=== PATIENT | female | born 1945 | race Caucasian/White ===

== ENCOUNTER 2018-04-24 06:41 | Inpatient (IN) ==
--- NOTE | 2018-04-16 22:06 | Discharge Summary ---
Orders not resulted at time of discharge: Pending orders 04/17/18 00:01 XR shoulder complete RT [XR] Routine H/H [Hemoglobin and Hematocrit] [HEME] Routine - Discharge Diagnosis (1) Rotator cuff arthropathy of right shoulder Priority: Primary Status: Acute (2) Status post reverse total arthroplasty of right shoulder Priority: Primary Status: Acute - Hospital Course Hospital course: Ms. Majano is a 72 year old female - Time Spent with Patient Total time spent providing and/or coordinating discharge services: - Discharge Medications Prescriptions: OxyCODONE Immed Rel [Roxicodone 5 MG] 5 mg PO Q6HR PRN 7 Days #28 tablet PRN Reason: Severe Pain Home Medications: OxyCODONE Immed Rel [Roxicodone 5 MG] 5 mg PO Q6HR PRN 7 Days #28 tablet 04/16/18 [Rx] Allergies/Adverse Reactions: Allergy/AdvReac Type Severity Reaction Status Date / Time Amoxicillin Allergy Swelling Verified 12/24/16 11:52 of Lip/Tongue/Throat ampicillin Allergy Swelling Verified 12/24/16 11:52 of Lip/Tongue/Throat Penicillins Allergy Swelling Verified 12/24/16 11:52 of Lip/Tongue/Throat Primary care physician: Shanelle Nieves CNP - Discharge Instructions Follow Up With: Shanelle Nieves CNP [Primary Care Provider] -
[~2018-04-24 06:41] MED LIST: *HR* Enoxaparin 30 MG/0.3 ML SYRINGE SQ SCH
[2018-04-24] MEDS ORDERED: Lidocaine -MPF 4% 5 ML AMPUL ONE (07:18)
[2018-04-24] MEDS ORDERED: Ondansetron 4 MG/2 ML VIAL ONE (07:20)
[2018-04-24] MEDS ORDERED: Lidocaine -MPF 2% 2 ML VIAL ONE ×2 (07:20→07:38)
[2018-04-24] MEDS ORDERED: *HR* FentaNYL (PF) 100 MCG/2 ML VIAL ONE (07:20)
[2018-04-24] MEDS ORDERED: Dexamethasone 4 MG/ML VIAL ONE ×3 (07:20→08:14)
[2018-04-24] MEDS ORDERED: *HR* Succinylcholine 200 MG/10 ML VIAL IVP ONE (07:20)
[2018-04-24] MEDS ORDERED: *HR* Midazolam HCl 2 MG/2 ML VIAL ONE (07:21)
[2018-04-24] MEDS ORDERED: *HR* Propofol 200 MG/20 ML VIAL IVP ONE (07:22)
[2018-04-24] MEDS ORDERED: Albuterol 2.5 MG/3 ML NEBULIZER IH ONE (07:38)
[2018-04-24] MEDS ORDERED: Clindamycin 900 MG/50 ML 900 MG/50 ML IV.SOLN IVPB ONE (07:38)
--- NOTE | 2018-04-24 07:38 | Anesthesia Evaluation PreOp ---
Date of Encounter: 04/24/18 Time of Encounter: 07:37 - Past History Planned Operation: Right Total Shoulder Cardiac History: HTN, Hyperlipidemia Pulmonary History: Former smoker (quit 5 years ago, smoked for 50 years), Asthma, COPD (home O2 prn and qhs), SOPHIA Dx (does not use CPAP) CYLINDER TESTER History: Denies Any Significant HX Other Medical History: Diabetes Type II, Thyroid, GERD Anesthesia History: No Prior Anesthetic Complications, Past Anesthesia Alcohol Use: rarely Drug use: none Medications and Allergies Albuterol Sulfate [Ventolin Hfa] 2 puff IH Q6H PRN 04/24/18 [History] Atorvastatin [Lipitor] 40 mg PO HS 04/24/18 [History] Budesonide/Formoterol 160/4.5 [Symbicort 160/4.5] 2 puff IH BIDR 04/24/18 [History] Celecoxib [Celebrex] 200 mg PO DAILY 04/24/18 [History] Ferrous Sulfate [Iron] 325 mg PO DAILY 04/24/18 [History] Ipratropium/Albuterol Sulfate [Combivent Respimat Inhal [place]] 2 puff IH QID PRN 04/24/18 [History] Levothyroxine [Synthroid] 75 mcg PO 0630 04/24/18 [History] Linagliptin [Tradjenta] 5 mg PO DAILY 04/24/18 [History] Lisinopril [Zestril] 5 mg PO DAILY 04/24/18 [History] Multivitamin with Minerals/Lut [Cerovite Senior Tablet] 1 tab PO DAILY 04/24/18 [History] Pantoprazole Sodium [Protonix] 40 mg PO DAILY 04/24/18 [History] Pregabalin [Lyrica] 100 mg PO BID 04/24/18 [History] Propantheline [place] 15 mg PO DAILY 04/24/18 [History] Terbinafine HCl 250 mg PO DAILY 04/24/18 [History] Tizanidine HCl 2 mg PO Q8H PRN 04/24/18 [History] Zolpidem [Ambien] 10 mg PO HS 04/24/18 [History] metFORMIN [Glucophage] 250 mg PO BIDWM 04/24/18 [History] Allergy/AdvReac Type Severity Reaction Status Date / Time Amoxicillin Allergy Swelling Verified 04/24/18 07:49 of Lip/Tongue/Throat ampicillin Allergy Swelling Verified 04/24/18 07:49 of Lip/Tongue/Throat Penicillins Allergy Swelling Verified 04/24/18 07:49 of Lip/Tongue/Throat - Meds/Allergy Pre-op Review Medications Reviewed: Yes Allergies Reviewed: Yes Beta Blockers on Current Med List: No Anesthesia Results - Labs Laboratory Tests 04/14/18 04/14/18 04/14/18 12:20 12:20 12:20 WBC 8.5 Hgb 11.6 Hct 37.1 Plt Count 345 PT 11.3 INR 1.0 APTT 36.7 H Sodium 140 Potassium 3.7 BUN 7 L Creatinine 0.74 - Imaging EKG: report reviewed (04/14/[address] & T-WAVE ABNORMALITY) Anesthesia Exam O2 Sat Height 1.57 m Weight 84.822 kg O2 Sat by Pulse Oximetry 97 Vital Signs Temp Pulse Resp BP Pulse Ox 98.0 F 113 18 166/67 97 04/24/18 07:14 04/24/18 07:14 04/24/18 07:14 04/24/18 07:14 04/24/18 07:14 Blood Glucose* 190 Height: 5'2'' Weight: 187 lbs NPO (# of Hours): 8 Pain Scale: 0 Pain Scale Used: Numeric (1 - 10) - HEENT Pupil (Motor): EOMI Mallampati: III Teeth: Edentulous Oral Opening: Greater than 3 - CYLINDER TESTER LOC: Oriented CYLINDER TESTER Motor: Normal LUE, Normal RLE, Normal LLE, Normal Face, Deficit RUE CYLINDER TESTER Sensory: Normal: RUE, LUE, Face, Deficit: RLE, LLE - Cardiac Rhythm: Regular Murmur: None - Pulmonary Breath Sounds: bilateral Clear Respiratory Effort: Symmetrical Anesthesia Assess/Plan ASA Score: 3 Level of consciousness: Cooperative, Oriented, Tranquil Anesthetic Plan: General, Regional Nerve Block Regional Nerve Block Plan: Supraclavicular Monitoring Plan: Standard Monitors Recovery Plan: PACU
[2018-04-24] MEDS ORDERED: Ethanol\\Acetic Acid\\Na Ace\\Ben 1,000 ML IRRIG.SOLN IR ONE (07:40)
[2018-04-24] MEDS ORDERED: Ringers Solution, Lactated 1,000 ML IVC SCH ×3 (07:45→10:51)
--- NOTE | 2018-04-24 07:54 | History & Physical Report ---
Date of Encounter: 04/24/18 Time of Encounter: 07:53 24 Hour HP Update - Instructions Instructions: If the History and Physical is less than 30 days old and was completed prior to A.M. admission and or procedure and has NOT been updated on calendar day of procedure please complete this update prior to performing procedure. - Update Patient reports changes in Medical Condition: No Changes in examination, assessment, or condition: No Changes in Medication: No Preop tests/diagnostics Reviewed: Yes Surgery Remains Indicated: Yes Consent for Planned Operative Procedure(s) Verified: Yes - Pre-Operative Checklist Preoperative Checklist Indicated: No Prophylactic Antibiotic Ordered: Yes Is VTE Prophylaxis Indicated?: Yes
[2018-04-24] MEDS ORDERED: Levalbuterol Neb 1.25 MG/3 ML IH ONE (07:55)
[2018-04-24] MEDS ORDERED: ROPIVACAINE HCL/PF 0.5% 30 ML VIAL ONE (08:15)
[2018-04-24] MEDS ORDERED: Bupivacaine/Clonidine Syringe 1 EACH SYRINGE ONE (08:21)
--- NOTE | 2018-04-24 08:40 | Anesthesia Procedures ---
Date of Encounter: 04/24/18 Time of Encounter: 08:37 Procedures: Anesthesia - Nerve Block Procedure Date: 04/24/18 Time: 08:37 Allergies/Adv Reactions: Amoxicillin Allergy (Verified 04/24/18 07:49) Swelling of Lip/Tongue/Throat ampicillin Allergy (Verified 04/24/18 07:49) Swelling of Lip/Tongue/Throat Penicillins Allergy (Verified 04/24/18 07:49) Swelling of Lip/Tongue/Throat Pre-op Diagnosis: rotator cuff arthropathy Surgical Procedure: right reverse ball Checklist: Correct Patient Identifier, Correct procedure, History checked Correct side: Right Blood Thinner: No Monitor Applied: EKG, BP, Pulse Oximetry Supplemental Oxygen via Nasal Cannula (L/min): 2 Sedation: Versed (mg): 2 Sedation: Fentanyl (mcg): 50 Indication: Post Op Analgesia Block Type: Supraclavicular (30cc 0.5% ropivicaine), Other (SCP 5cc 0.25% bupivicaine with clonidine) Catheter placed: No Sterile Technique: Yes Ultrasound used: Yes Anatomy identified: Yes Visual spread of Local: Yes Neuro Stimulation: No Blood on Needle Aspiration: No Smooth Injection of Local: Yes Pain with Injection of Local: No Prep: Chlorhexadine Needle: 22 x 50 mm Stimuplex Local: 0.25% Bupivicaine w/Clonidine 20 mcg/cc, Ropivacaine Volume (cc): 35 Number of Attempts: 1 Complications: None/effective block
[2018-04-24] MEDS ORDERED: *HR* HYDROmorphone (PF) 1 MG/ML SYRINGE IVP PRN (09:13)
[2018-04-24] MEDS ORDERED: Ondansetron 4 MG/2 ML VIAL IVP ONE (09:13)
[2018-04-24] MEDS ORDERED: *HR* OxyCODONE Immed Rel 5 MG TABLET PO PRN ×2 (09:13→10:51)
--- NOTE | 2018-04-24 09:49 | Orthopedic Operative Note ---
Date of procedure: 04/24/18 Pre-op diagnosis: right shoulder cuff tear arthropathy Post-op diagnosis: same Procedure: Procedure: Total Shoulder Replacment Reverse, right Estimated blood loss: 50 cc Hardware: Metal and polyethylene replacement: Arthrex 24, +2 , 25m screw glenoid baseplate, 2 4.5 screws. 2 5.5 screw, 39+4 glenosphere, 9 apex humeral stem, poly insert 6 Exam Under anesthesia: full motion no instability Procedural Notes Irreparable tear rotator cuff Operative procedure: The patient was brought to the operating room and placed on the operating room table. After general anesthesia was administered the operative shoulder was examined. Findings were noted. The patient was placed in the modified beachchair position. All pressure points were padded appropriately. And the head was stabilized in the neutral position. The operative extremity was pr epped and draped in the sterile surgical fashion. The patient received IV antibiotics prior to skin incision. A standard deltopectoral approach was made to the operative shoulder. Incision was made to the skin and subcutaneous tissue,hemo stasis was obtained with Bovie cautery. Using careful blunt dissection the cephalic vein was identified and mobilized medially. The deltopectoral interval was developed and the clavipectoral fascia was incised. The subscap was released off the lesser tuberosity and tagged with #2 FiberWire suture subscap is reparable. The humerus was dislocated patient noted to have irreparable tear supraspinatus tendon, and the humeral cut was made along the anatomic neck. Anterior and posterior Bankart retractors were placed to expose the glenoid. The glenoid guide was seated and the centering hole was made. It was reamed with the appropriate reamer. The 24, +2, 25 mm screw, baseplate was seated and secured with (2) 4.5 screws and 2 5.5 screw. The baseplate was irrigated and dried and the 39+4 Glenosphere was seated and secured with the Welsh taper. The Welsh taper was tested and found to be secure the humerus was redislocated and prepared with the diaphyseal reamers, followed by a broaching process up to the appropriate size 9 apex in the patient's anatomic version. The metaphyseal reamer was then utilized. Trial reduction found the shoulder to be relocatable. Trial components were removed and 9 apex stem was impacted in place in the patient's anatomic version. Trial reduction found the shoulder to be relocatable and stable with the ap propriate 6 Stephanie Trial component was removed and the real implant was seated and secured the shoulder was reduced. The shoulder had excellent motion and excellent stability and no evidence of dislocation. The deep tissue was irrigated with pulse irrigation. The PA close the shoulder. The deltopectoral interval was closed with a running #1 PDS suture, subcutaneous tissue was irrigated and closed with 0 PDS suture, the skin was closed with Dermabond. The patient was placed in a sterile dressing, abduction brace and extubated. The patient was then transferred to the recovery room in stable condition. Anesthesia: GETA Surgeon: Quinn Larry Was there an customer support assistant present: Yes Forensic Psychologist: Mita Parada Estimated blood loss (cc): 50 Condition: stable Disposition: PACU
[2018-04-24 10:37] LABS: Hematocrit 35.5 % (35.3-44.9); Hemoglobin 11.4 g/dL (11.5-15.4)
--- NOTE | 2018-04-24 10:39 | Anesthesia Evaluation Post Op ---
Date of Encounter: 04/24/18 Time of Encounter: 10:38 - Vital Signs Vital Signs: Vital Signs/O2 Sat/Glucose, Most Recent Temp Pulse Resp BP Pulse Ox 97.7 F 96 16 145/76 96 04/24/18 10:34 04/24/18 10:34 04/24/18 10:34 04/24/18 10:34 04/24/18 10:34 Blood Glucose* 190 - Lungs Lungs: Clear Ascult./Percussion - Airway Airway: Non-obstructed - Cardiovascular Regular Rate - Mental Status Mental Status: Alert & Oriented, Answers Appropriately - Pain Pain Scale: 0 - Nausea Vomiting Nausea Vomiting: Not Present - Hydration Hydration: Tolerates oral liquids - Discharge PostOp Status: Transfer Patient to floor
[2018-04-24] MEDS ORDERED: Ondansetron 4 MG/2 ML VIAL IVP PRN (10:51)
[2018-04-24] MEDS ORDERED: Temazepam 15 MG CAPSULE PO PRN (10:51)
[2018-04-24] MEDS ORDERED: Pregabalin 50 MG CAPSULE PO SCH (10:51)
[2018-04-24] MEDS ORDERED: Sennosides 8.6 MG TABLET PO PRN (10:51)
[2018-04-24] MEDS ORDERED: (Terbinafine Hcl [Terbinafine Hcl] 250 MG) PO SCH (10:51)
[2018-04-24] MEDS ORDERED: MOM Conc 10 ML UD.LIQ PO PRN (10:51)
[2018-04-24] MEDS ORDERED: D5% in Water 1,000 ML IVC PRN (10:51)
[2018-04-24] MEDS ORDERED: Dextrose Gel 15 GM/37.5 ML TUBE PO PRN ×2 (10:51)
[2018-04-24] MEDS ORDERED: *HR* OxyCODONE/APAP 5/325 TABLET PO PRN (10:51)
[2018-04-24] MEDS ORDERED: PROPANTHELINE BROMIDE 15 MG PO SCH (10:51)
[2018-04-24] MEDS ORDERED: traMADol 50 MG TABLET PO PRN (10:51)
[2018-04-24] MEDS ORDERED: (Linagliptin [Tradjenta] 5 MG) PO SCH (10:51)
[2018-04-24] MEDS ORDERED: Budesonide/Formoterol 160/4.5 1 PUFF INH IH SCH (10:51)
[2018-04-24] MEDS ORDERED: Multivit/Ca/Min/Fe/FA 1 TAB TABLET PO SCH (10:51)
[2018-04-24] MEDS ORDERED: *HR* Dextrose 50 % in Water (Syg) 50 ML SYRINGE IVP PRN (10:51)
[2018-04-24] MEDS ORDERED: Naloxone 0.4 MG/ML INJ IVP PRN (10:51)
[2018-04-24] MEDS ORDERED: tiZANidine 4 MG TABLET PO PRN (10:51)
[2018-04-24] MEDS ORDERED: Insulin LISPRO 300 UNITS/3 ML VIAL SQ SCH ×2 (11:30→21:00)
[2018-04-24 11:45] VITALS: BP 117/70
[2018-04-24] MEDS ORDERED: *HR* Enoxaparin 30 MG/0.3 ML SYRINGE SQ SCH ×3 (13:09→18:00)
[2018-04-24] MEDS ORDERED: Clindamycin 900 MG/50 ML 900 MG/50 ML IV.SOLN IVPB SCH ×2 (13:10→16:00)
--- NOTE | 2018-04-24 14:38 | Discharge Summary ---
Orders not resulted at time of discharge: Pending orders 04/24/18 07:51 US anesthesia pain block [US] Routine 04/24/18 09:44 Surgical Pathology [PTH] Routine 04/25/18 04:00 Basic Metabolic Panel AM 0400 Hemoglobin and Hematocrit [HEME] AM 0400 04/26/18 04:00 Basic Metabolic Panel AM 0400 Hemoglobin and Hematocrit [HEME] AM 0400 Date of Encounter: 04/24/18 Time of Encounter: 14:36 - Discharge Diagnosis (1) Rotator cuff arthropathy of right shoulder Priority: Primary Status: Acute Comments: Opsite dressing, leave intact until first post-operative visit. Zipline in place, plan to remove at post-operative day #14-16. If dressing becomes >50% saturated, contact office, remove dressing and place appropriate dressing in its place. Do not allow for dressing to get wet. Shoulder Precautions x 6 weeks. Apply cold therapy wrap 3-6x/day for 20 minutes at a time. Encourage ambulation throughout the day. Use Incentive spirometer 10x/hour. Elevate affected extremity above heart as tolerated. NWB to affected upper extremity x 6 weeks. Will remove brace at first post-operative appointment. OK to remove during PT/OT and Home exercises. (2) Status post reverse total arthroplasty of right shoulder Priority: Primary Status: Acute (3) DMII (diabetes mellitus, type 2) Priority: Secondary Status: Chronic Qualifiers: Diabetes mellitus intermediate card tender insulin use: unspecified correction insulin use status Diabetes mellitus complication status: without complication Qualified Code(s): E11.9 - Type 2 diabetes mellitus without complications (4) HTN (hypertension) Priority: Secondary Status: Chronic Qualifiers: Hypertension type: essential hypertension Qualified Code(s): I10 - Essential (primary) hypertension (5) HLD (hyperlipidemia) Priority: Secondary Status: Acute Qualifiers: Hyperlipidemia type: mixed hyperlipidemia Qualified Code(s): E78.2 - Mixed hyperlipidemia (6) Hypothyroid Priority: Secondary Status: Chronic Qualifiers: Hypothyroidism type: unspecified Qualified Code(s): E03.9 - Hypothyroidism, unspecified (7) COPD (chronic obstructive pulmonary disease) Priority: Secondary Status: Chronic Qualifiers: COPD type: unspecified COPD Qualified Code(s): J44.9 - Chronic obstructive pulmonary disease, unspecified (8) Supplemental oxygen dependent Priority: Secondary Status: Chronic - Hospital Course Hospital course: Ms. Majano is a 72 year old female, status post Right TSR-reverse 04/24/18 . Patient had uneventful postoperative course. Stable for discharge. A&O x 3 Afebrile, vital signs stable. Vital Signs Temp Pulse Resp BP Pulse Ox 04/24/18 11:54 16 96 04/24/18 11:43 97.4 F L 98 18 117/70 96 04/24/18 10:54 97.8 F 100 19 155/81 95 04/24/18 10:34 97.7 F 96 16 145/76 96 04/24/18 10:24 92 14 137/68 96 04/24/18 10:14 93 16 138/73 96 04/24/18 10:04 98.9 F 98 16 134/72 99 04/24/18 08:37 105 18 154/73 95 04/24/18 08:27 101 18 157/102 96 04/24/18 07:40 98.0 F 113 18 166/67 97 04/24/18 07:14 98.0 F 113 18 166/67 97 Intake and Output 04/23/18 04/24/18 04/24/18 23:59 07:59 15:59 Intake Total 930 / 930 Output Total 1600 / 1600 Balance -670 / -670 Intake: IV Fluids 50 / 50 Cleocin Premix 900 MG/50 ML 900 50 / 50 mg In 50 ml @ 100 mls/hr IVPB PREOP ONE Rx#:[id number] Oral 880 / 880 Output: Urine 1550 / 1550 Estimated Blood Loss 50 / 50 Other: Meal Lunch Weight 84.822 kg Blood Glucose* 190 217 Patient Weight 04/24/18 23:59 Weight 84.822 kg Labs reviewed. H/H - stable, asymptomatic Short CBC 04/24/18 Range/Units 10:17 Hgb 11.4 L (11.5-15.4) g/dL Hct 35.5 (35.3-44.9) % Pain control: adequate Participating in PT. All questions and concerns addressed. Educated on use of incentive spirometer. Encouraged ambulation and proper hydration. Patient educated on post-operative restrictions and post-operative care. Assessment and plan: Continue with postoperative care Discharge plan: Home , discharge today with hh - Time Spent with Patient Total time spent providing and/or coordinating discharge services: - Discharge Medications Prescriptions: OxyCODONE Immed Rel [Roxicodone 5 MG] 5 mg PO Q6HR PRN 7 Days #28 tablet PRN Reason: Severe Pain Home Medications: Albuterol Sulfate [Ventolin Hfa] 2 puff IH Q6H PRN 04/24/18 [History] Atorvastatin [Lipitor] 40 mg PO HS 04/24/18 [History] Budesonide/Formoterol 160/4.5 [Symbicort 160/4.5] 2 puff IH BIDR 04/24/18 [History] Celecoxib [Celebrex] 200 mg PO DAILY 04/24/18 [History] Ferrous Sulfate [Iron] 325 mg PO DAILY 04/24/18 [History] Ipratropium/Albuterol Sulfate [Combivent Respimat 20-100 Mcg] 2 puff IH QID PRN 04/24/18 [History] Levothyroxine [Synthroid] 75 mcg PO 0630 04/24/18 [History] Linagliptin [Tradjenta] 5 mg PO DAILY 04/24/18 [History] Lisinopril [Zestril] 5 mg PO DAILY 04/24/18 [History] Multivitamin with Minerals/Lut [Cerovite Senior Tablet] 1 tab PO DAILY 04/24/18 [History] OxyCODONE Immed Rel [Roxicodone 5 MG] 5 mg PO Q6HR PRN 7 Days #28 tablet 04/24/18 [Rx] Pantoprazole Sodium [Protonix] 40 mg PO DAILY 04/24/18 [History] Pregabalin [Lyrica] 100 mg PO BID 04/24/18 [History] Propantheline [place] 15 mg PO DAILY 04/24/18 [History] Terbinafine HCl 250 mg PO DAILY 04/24/18 [History] Tizanidine HCl 2 mg PO Q8H PRN 04/24/18 [History] Zolpidem [Ambien] 10 mg PO HS 04/24/18 [History] metFORMIN [Glucophage] 250 mg PO BIDWM 04/24/18 [History] Allergies/Adverse Reactions: Allergy/AdvReac Type Severity Reaction Status Date / Time Amoxicillin Allergy Swelling Verified 04/24/18 07:49 of Lip/Tongue/Throat ampicillin Allergy Swelling Verified 04/24/18 07:49 of Lip/Tongue/Throat Penicillins Allergy Swelling Verified 04/24/18 07:49 of Lip/Tongue/Throat Date of admission: 04/24/18 10:51 Primary care physician: Shanelle Nieves CNP Consults: 04/24/18 10:51 Consult to Occupational Therapy [CONS] Routine Comment: post shoulder surgery Reason for Consult: post shoulder surgery Does patient have active BEDREST order?: No Is patient medically & hemodynamically stable?: Yes Consult to Physical Therapy [CONS] Routine Comment: post shoulder surgery Reason for Consult: post shoulder surgery Does patient have active BEDREST order?: No Is patient medically & hemodynamically stable?: Yes RT Post Op Consult [CONS] Routine 04/24/18 14:12 Consult to Insole Department Worker [CONS] Routine Reason for SW Consult: NEED HOME HEALTH CARE Anticipated date of discharge: 04/24/18 Labs on day of discharge: Labs from last 24 hours 04/24/18 04/24/18 10:17 07:12 Hgb 11.4 L Hct 35.5 POC Glucose 190 H - Impressions ITS Impressions Shoulder X-Ray 04/24/18 08:07 IMPRESSION: Satisfactory appearance status post right shoulder arthroplasty D/ / Neto Mathews MD / Neto Mathews MD Interpreting Provider: Neto Mathews MD - Patient Status Disposition: Home Health Service Condition: Good Functional capacity at discharge: uses cane/walker Overall status at discharge: patient is progressing back to baseline - Discharge Instructions Follow Up With: Shanelle Nieves CNP [Primary Care Provider] - Additional Instructions: Discharge Instructions: Total Shoulder Please call [facility] ([phone]), your Primary Care Physician, or report to the Emergency Room if you have any of the following symptoms: Nausea, vomiting, fever greater that 101.5, swelling, chest pain, shortness of breath, increased pain/redness/drainage/odor for your incision site, numbness/tingling, or any other concerning symptoms. ACTIVITY: Always keep your arm in the sling. Do not raise your arm away from your body. Do not use your arm to help with getting in or out of bed. No weight bearing permitted. Only perform those exercises given to you by your therapist. Incentive Spirometer 10 times an hour. MEDICATIONS: Upon discharge resume your home medications. Take all the medications as prescribed. Take a stool softener if taking narcotic pain medications. Stool softeners are only effective if you drink enough fluids. Drink 6-8 glass of water or fluids a day, unless this is not allowed for another health problem. Despite using stool softeners, if you haven't had a bowel movement in 3 days, please switch to a gentle laxative. Gentle laxatives are sold over the counter. You should have a bowel movement within 24 hours, if not call the office. You will be discharged from the hospital with a prescription for pain medication. You are encouraged to decrease the use of narcotic pain medication as tolerated. Should you require a refill, please call the office. [facility] prescribes narcotic pain medication for only 4-6 weeks after surgery. If you require pain medication beyond this time period, you may be referred to your Primary Care Physician or to the Pain Clinic for further evaluation. Plan ahead for refills on pain medication as many narcotics either need to be picked up at the office or mailed. It is best to call 48-72 hours in advance of needing a prescription refill so you don't run out of medication. To help control the post-operative pain, you may take NSAIDs (Aleve,Advil, Motrin, Ibuprofen, Naprosyn) or Tylenol as prescribed on the bottle in addition to the pain medication. WOUND CARE: Leave the dressing on for 7-10 days. You may change the dressing if it becomes saturated greater than 50%. Do not get the dressing wet at anytime. Wash your hands with antibacterial soap, rinse and dry prior to any wound care. If you have crystal the visiting nurse or rehab facility can remove the stapes 10-14 days after surgery and place steri-strips across the wound. Leave the steri-strips in place until they fall off on their own. You may let water from the shower run on top of the steri-strips. If you do not have a visiting nurse or rehab facility, you will need to return to the office at 10-14 days for the crystal to be removed. If you have itching or redness around the dressing call the office. FOLLOW-UP: Please follow up with your surgeon in the orthopedic clinic, as scheduled - Diet and Activity Activity: wear oxygen at night
--- NOTE | 2018-04-24 14:44 | Physician Discharge Referral ---
Home Health/Hosp Referral Info Transfer to: Home Health Provider in Charge Post Discharge: PCP - Diagnosis (1) Rotator cuff arthropathy of right shoulder Priority: Primary Status: Acute (2) Status post reverse total arthroplasty of right shoulder Priority: Primary Status: Acute (3) DMII (diabetes mellitus, type 2) Status: Chronic (4) HTN (hypertension) Status: Chronic (5) HLD (hyperlipidemia) Status: Acute (6) Hypothyroid Status: Chronic (7) COPD (chronic obstructive pulmonary disease) Status: Chronic (8) Supplemental oxygen dependent Status: Chronic - Respiratory Orders Other (O2 at night, and prn) Smoking Cessation: Smoking cessation has been advised. For more information, call the [employer] Tobacco Quit Line at 7-957-JQBK-NOW. - Diet/Nutrition Diet/Nutrition Orders: Regular - Activity Activity Orders: Up ad lyudmila, Ambulate - Services Needed Following services are medically necessary services: Nursing, Home Health Aide, Physical Therapy, Occupational Therapy Home Care Orders: Opsite dressing, leave intact until first post-operative visit. Zipline in place, plan to remove at post-operative day #14-16. If dressing becomes >50% saturated, contact office, remove dressing and place appropriate dressing in its place. Do not allow for dressing to get wet. Shoulder Precautions x 6 weeks. Apply cold therapy wrap 3-6x/day for 20 minutes at a time. Encourage ambulation throughout the day. Use Incentive spirometer 10x/hour. Elevate affected extremity above heart as tolerated. NWB to affected upper extremity x 6 weeks. Will remove brace at first post-operative appointment. OK to remove during PT/OT and Home exercises. O2 at night, and prn. - Transfer Medications Prescriptions: OxyCODONE Immed Rel [Roxicodone 5 MG] 5 mg PO Q6HR PRN 7 Days #28 tablet PRN Reason: Severe Pain Home Medications: Albuterol Sulfate [Ventolin Hfa] 2 puff IH Q6H PRN 04/24/18 [History] Atorvastatin [Lipitor] 40 mg PO HS 04/24/18 [History] Budesonide/Formoterol 160/4.5 [Symbicort 160/4.5] 2 puff IH BIDR 04/24/18 [History] Celecoxib [Celebrex] 200 mg PO DAILY 04/24/18 [History] Ferrous Sulfate [Iron] 325 mg PO DAILY 04/24/18 [History] Ipratropium/Albuterol Sulfate [Combivent Respimat 20-100 Mcg] 2 puff IH QID PRN 04/24/18 [History] Levothyroxine [Synthroid] 75 mcg PO 0630 04/24/18 [History] Linagliptin [Tradjenta] 5 mg PO DAILY 04/24/18 [History] Lisinopril [Zestril] 5 mg PO DAILY 04/24/18 [History] Multivitamin with Minerals/Lut [Cerovite Senior Tablet] 1 tab PO DAILY 04/24/18 [History] OxyCODONE Immed Rel [Roxicodone 5 MG] 5 mg PO Q6HR PRN 7 Days #28 tablet 04/24/18 [Rx] Pantoprazole Sodium [Protonix] 40 mg PO DAILY 04/24/18 [History] Pregabalin [Lyrica] 100 mg PO BID 04/24/18 [History] Propantheline [place] 15 mg PO DAILY 04/24/18 [History] Terbinafine HCl 250 mg PO DAILY 04/24/18 [History] Tizanidine HCl 2 mg PO Q8H PRN 04/24/18 [History] Zolpidem [Ambien] 10 mg PO HS 04/24/18 [History] metFORMIN [Glucophage] 250 mg PO BIDWM 04/24/18 [History] Allergies/Adverse Reactions: Allergy/AdvReac Type Severity Reaction Status Date / Time Amoxicillin Allergy Swelling Verified 04/24/18 07:49 of Lip/Tongue/Throat ampicillin Allergy Swelling Verified 04/24/18 07:49 of Lip/Tongue/Throat Penicillins Allergy Swelling Verified 04/24/18 07:49 of Lip/Tongue/Throat Certification: Further, I certify that my clinical findings support that this patient is homebound (i.e. absences from home require considerable and taxing effort and are for medical reasons or baptism services or infrequently or short duration when for other reasons) because: Homebound Reason: Post-surgery restriction and or conditions limit ability to leave home Attestation: My signature below is to certify that this patient is under my care and that I, or nurse practitioner, or a physician's optical assistant working with me, has a [id number] encounter with this patient.
[2018-04-24] MEDS ORDERED: *HR* Metformin 500 MG TABLET PO SCH (17:00)
== END 2018-04-24 16:10 | disposition home health service (06) | DRG 483 ==
LOC: SAMDAY 06:41 → 3NENU 10:51
PROVIDERS: ADMIT Orthopaedic Surgery; ATTEND Orthopaedic Surgery

== ENCOUNTER 2018-08-07 09:52 | Inpatient (IN) ==
[2018-08-07] MEDS ORDERED: methylPREDNISolone 125 MG/2 ML VIAL IVP ONE (09:59)
[2018-08-07] MEDS ORDERED: Ipratropium/Albuterol Neb 3 ML IH ONE (09:59)
--- NOTE | 2018-08-07 10:01 | Emergency Department Note ---
Disposition Clinical Impression: Acute exacerbation of chronic obstructive airways disease, Acute respiratory failure with hypoxia Fever Qualifiers: Fever type: unspecified Qualified Code(s): R50.9 - Fever, unspecified Disposition: Admitted As Inpatient Condition: Fair Instructions: Chronic Obstructive Pulmonary Disease (ED) Referrals: Shanelle Nieves CNP [Primary Care Provider] - Forms: ED Satisfaction Letter Time of Disposition: 13:03 General Adult HPI - General Stated complaint: WANDA Time Seen by Provider: 08/07/18 09:53 Source: patient, EMS Mode of arrival: EMS Limitations: physical limitation Nursing Notes Reviewed: Yes Vital Signs Reviewed: Yes - History of Present Illness HPI Narrative: Patient is a 72-year-old female past medical history of COPD, diabetes, HLD, HTN, and thyroid disease presents to the emergency department for evaluation of dyspnea that has been getting increasingly worse over the last 5 days with wheezing and productive cough. The patient states that she has an oxygen concentrator at home which usually only has to use 2 L at night which she has been having increased requirements. She denying any chest pain. Denies any fevers or recent sick contacts. States this is the worst that her COPD has ever been. - Related Data Home Medications Medication Instructions Recorded Confirmed Albuterol Sulfate [Ventolin Hfa] 2 puff IH Q6H PRN 04/24/18 04/24/18 Atorvastatin [Lipitor] 40 mg PO HS 04/24/18 04/24/18 Budesonide/Formoterol 160/4.5 2 puff IH BIDR 04/24/18 04/24/18 [Symbicort 160/4.5] Celecoxib [Celebrex] 200 mg PO DAILY 04/24/18 04/24/18 Ferrous Sulfate [Iron] 325 mg PO DAILY 04/24/18 04/24/18 Ipratropium/Albuterol Sulfate 2 puff IH QID PRN 04/24/18 04/24/18 [Combivent Respimat 20-100 Mcg] Levothyroxine [Synthroid] 75 mcg PO 0630 04/24/18 04/24/18 Linagliptin [Tradjenta] 5 mg PO DAILY 04/24/18 04/24/18 Lisinopril [Zestril] 5 mg PO DAILY 04/24/18 04/24/18 Multivitamin with Minerals/Lut 1 tab PO DAILY 04/24/18 04/24/18 [Cerovite Senior Tablet] Pantoprazole Sodium [Protonix] 40 mg PO DAILY 04/24/18 04/24/18 Pregabalin [Lyrica] 100 mg PO BID 04/24/18 04/24/18 Propantheline [place] 15 mg PO DAILY 04/24/18 04/24/18 Terbinafine HCl 250 mg PO DAILY 04/24/18 04/24/18 Tizanidine HCl 2 mg PO Q8H PRN 04/24/18 04/24/18 Zolpidem [Ambien] 10 mg PO HS 04/24/18 04/24/18 metFORMIN [Glucophage] 250 mg PO BIDWM 04/24/18 04/24/18 Allergies Allergy/AdvReac Type Severity Reaction Status Date / Time Amoxicillin Allergy Swelling Verified 04/24/18 07:49 of Lip/Tongue/Throat ampicillin Allergy Swelling Verified 04/24/18 07:49 of Lip/Tongue/Throat Penicillins Allergy Swelling Verified 04/24/18 07:49 of Lip/Tongue/Throat All systems ED: reviewed and negative except as stated. Review of Systems: As Per HPI Constitutional: Denies: fever, chills Cardiovascular: Reports: dyspnea on exertion. Denies: chest pain, palpitations, edema, syncope, paroxysmal nocturnal dyspnea Respiratory: Reports: cough, dyspnea, wheezes, sputum production. Denies: hemoptysis Gastrointestinal: Denies: abdominal pain, nausea, vomiting Musculoskeletal: Denies: back pain, neck pain Integumentary: Denies: rash Past Medical History - Past Medical History Attestation: Yes The following information was validated with the patient. Medical history: Reports: arthritis, asthma, COPD, diabetes, hyperlipidemia, hypertension, thyroid disease Surgical history: Reports: herniorrhaphy, hysterectomy Psychiatric history: Reports: no psych history - Social History Smoking Status: Former smoker Smokeless Tobacco Status: No Alcohol use: Reports: rarely Drug use: Reports: none Physical Exam - General Limitations: physical limitation General appearance: alert, in distress - Head Head exam: atraumatic, normocephalic - Eye Eye exam: Present: normal appearance, PERRL, EOMI - ENT ENT exam: normal exam, normal oropharynx, mucous membranes moist - Neck Neck exam: Present: normal inspection, full ROM, trachea midline - Chest Chest inspection: Present: normal inspection, symmetric chest wall rise - Respiratory Respiratory exam: Present: normal lung sounds bilaterally, respiratory distress, wheezes. Absent: accessory muscle use, prolonged expiratory phase - Cardiovascular Cardiovascular exam: Present: normal rhythm, tachycardia, +S1, +S2 - Abdominal Exam Abdominal exam: Present: soft, Non-Tender. Absent: tenderness, distention, guarding, rebound, rigidity - Extremities Exam Extremities exam: Present: normal inspection, full ROM. Absent: tenderness, pedal edema Course Course Narrative: Patient presents with increased work of breathing especially at bedside. The patient does have an oxygen saturation in the 80s without any supplemental oxygen. She has difficulty speaking in full sentences I ordered BiPAP given that she has diffuse wheezing in her history of COPD. she is given steroids and breathing treatments and she underwent evaluation with cardiac workup. - Reevaluation(s) Reevaluation #1: Patient is improving on BiPAP. Her heart rate continues to remain elevated. Her lab work was unremarkable and she is not acidotic. She had does have an elevation of her d-dimer so CTA of the chest was ordered she is also given a dose of azithromycin for COPD exacerbation given her negative chest x-ray. Time: 13:01 Reevaluation #2: Discussed the patient's case with the hospitalist on-call, Dr. Cruz and she agreed to accept the patient for COPD exacerbation. Time: 13:09 Vital Signs Temperature 101.6 F H 08/07/18 09:59 Pulse Rate 128 08/07/18 09:59 Respiratory Rate 21 08/07/18 09:59 Blood Pressure 167/105 08/07/18 09:59 O2 Sat by Pulse Oximetry 98 08/07/18 09:59 Temperature 101.6 F H 08/07/18 09:59 Pulse Rate 122 08/07/18 11:18 Respiratory Rate 23 08/07/18 11:18 Blood Pressure 106/79 08/07/18 11:18 O2 Sat by Pulse Oximetry 93 08/07/18 11:18 Oxygen Delivery Oxygen Delivery Bipap Medical Decision Making - Medical Records Medical records reviewed: Yes I reviewed the patient's medical records. - Lab Data Lab results reviewed: Yes I reviewed the patient's lab results. Result diagrams: 08/07/18 10:10 08/07/18 10:10 Lab Results 08/07/18 08/07/18 08/07/18 Range/Units 10:10 10:10 10:10 WBC 10.4 (4.3-11.1) K/mcL RBC 4.96 (3.82-4.97) M/mcL Hgb 12.5 (11.5-15.4) g/dL Hct 39.8 (35.3-44.9) % MCV 80.2 L (83.0-100.0) fL MCH 25.2 L (28.0-33.3) pg MCHC 31.4 L (31.6-35.5) g/dL RDW 16.1 H (11.5-14.5) % Plt Count 350 (140-400) K/mcL MPV 8.8 L (9.4-12.4) fL Immature Gran % 0.4 (0-4) % Seg Neutrophils % 72.0 % Lymphocytes % 18.6 % Monocytes % 8.1 % Eosinophils % 0.1 % Basophils % 0.8 % Neutrophils # 7.5 (1.6-8.9) K/mcL Lymphocytes # 1.9 (0.6-4.6) K/mcL Monocytes # 0.8 (0.0-1.3) K/mcL Eosinophils # 0.0 (0.0-0.6) K/mcL Basophils # 0.1 (0.0-0.2) K/mcL D-Dimer (0-500) ng/mLFEU VBG pH (7.32-7.42) pH Units VBG pCO2 (41-51) mmHg VBG pO2 (25-50) mmHg VBG HCO3 (21-27) mEq/L Sodium 134 L (136-145) mEq/L Potassium 3.9 (3.5-5.1) mEq/L Chloride 96 L (98-107) mEq/L Carbon Dioxide 28 (23-29) mEq/L BUN 9 (8-23) mg/dL Creatinine 0.79 (0.60-1.20) mg/dL Est GFR ( Amer) > 60 (> 60) Est GFR (Non-Af Amer) > 60 (> 60) BUN/Creatinine Ratio 11 (6-26) Glucose 182 H (70-105) mg/dL Calculated Osmolality 281 (280-300) Lactic Acid 0.7 (0.5-2.2) mmol/L Calcium 9.4 (8.6-10.3) mg/dL Troponin I < 0.03 (< 0.04) ng/mL B-Natriuretic Peptide (Less than 100) pg/mL 08/07/18 08/07/18 08/07/18 Range/Units 10:10 10:10 10:32 WBC (4.3-11.1) K/mcL RBC (3.82-4.97) M/mcL Hgb (11.5-15.4) g/dL Hct (35.3-44.9) % MCV (83.0-100.0) fL MCH (28.0-33.3) pg MCHC (31.6-35.5) g/dL RDW (11.5-14.5) % Plt Count (140-400) K/mcL MPV (9.4-12.4) fL Immature Gran % (0-4) % Seg Neutrophils % % Lymphocytes % % Monocytes % % Eosinophils % % Basophils % % Neutrophils # (1.6-8.9) K/mcL Lymphocytes # (0.6-4.6) K/mcL Monocytes # (0.0-1.3) K/mcL Eosinophils # (0.0-0.6) K/mcL Basophils # (0.0-0.2) K/mcL D-Dimer 846 H (0-500) ng/mLFEU VBG pH 7.38 (7.32-7.42) pH Units VBG pCO2 49 (41-51) mmHg VBG pO2 106 H (25-50) mmHg VBG HCO3 29 H (21-27) mEq/L Sodium (136-145) mEq/L Potassium (3.5-5.1) mEq/L Chloride (98-107) mEq/L Carbon Dioxide (23-29) mEq/L BUN (8-23) mg/dL Creatinine (0.60-1.20) mg/dL Est GFR ( Amer) (> 60) Est GFR (Non-Af Amer) (> 60) BUN/Creatinine Ratio (6-26) Glucose (70-105) mg/dL Calculated Osmolality (280-300) Lactic Acid (0.5-2.2) mmol/L Calcium (8.6-10.3) mg/dL Troponin I (< 0.04) ng/mL B-Natriuretic Peptide 38 (Less than 100) pg/mL - Radiology Data Radiology results reviewed: Yes I reviewed the patient's radiology results. Chest X-Ray 08/07/18 09:58 IMPRESSION: No acute cardiopulmonary abnormality. D/ / Dieog Corrales MD / Diego Corrales MD Interpreting Provider: Diego Corrales MD Chest CTA 08/07/18 12:02 IMPRESSION: No evidence of pulmonary embolism or acute pulmonary abnormality. Stable centrilobular emphysematous changes. Mildly prominent left hilar lymph node measuring 1.3 x 1.4 cm. Calcified left upper lobe nodule. Stable noncalcified medial right lower lobe pulmonary nodule measuring 4 mm. This finding remains stable as compared to 09/20/2017 study and low-dose lung screening CT in 1 year recommended. D/ / Clay Saxena MD / Clay Saxena MD Interpreting Provider: Clay Saxena MD - EKG Data EKG #1 EKG attestation: Yes I reviewed and interpreted this EKG. EKG results narrative: EKG done at 10:04 shows sinus tachycardia rate 128 bpm. Normal axis. Intervals within normal limits no signs of ST elevation, ST depression or Q waves present.
[2018-08-07 10:35] LABS: VBG HCO3 29 mEq/L (21-27); VBG PCO2 49 mmHg (41-51); VBG PH 7.38 pH Units (7.32-7.42); VBG PO2 106 mmHg (25-50)
[2018-08-07 10:35] LABS: Basophils # 0.1 K/mcL (0.0-0.2); Basophils % 0.8 %; Eosinophils % 0.1 %; Hematocrit 39.8 % (35.3-44.9); Hemoglobin 12.5 g/dL (11.5-15.4); Immature Granulocytes % 0.4 % (0-4); Lymphocytes # 1.9 K/mcL (0.6-4.6); Lymphocytes % 18.6 %; Mean Corpuscular HGB Conc 31.4 g/dL (31.6-35.5); Mean Corpuscular Hemoglobin 25.2 pg (28.0-33.3); Mean Corpuscular Volume 80.2 fL (83.0-100.0); Mean Platelet Volume 8.8 fL (9.4-12.4); Monocytes # 0.8 K/mcL (0.0-1.3); Monocytes % 8.1 %; Neutrophils # 7.5 K/mcL (1.6-8.9); Platelet Count 350 K/mcL (140-400); Red Blood Count 4.96 M/mcL (3.82-4.97); Red Cell Distribution Width 16.1 % (11.5-14.5)
[2018-08-07 10:53] LABS: BUN/Creatinine Ratio 11 (6-26); Blood Urea Nitrogen 9 mg/dL (8-23); Calcium 9.4 mg/dL (8.6-10.3); Carbon Dioxide 28 mEq/L (23-29); Chloride 96 mEq/L (98-107); Glucose 182 mg/dL (70-105); Osmolality,Calculated 281 (280-300); Potassium 3.9 mEq/L (3.5-5.1); Sodium 134 mEq/L (136-145); Troponin I < 0.03 ng/mL (< 0.04); eGFR For Non-African Americans > 60 (> 60)
[2018-08-07] MEDS ORDERED: Azithromycin 500 MG in D5% in Water 250 ML IVPB ONE (11:02)
--- NOTE | 2018-08-07 11:44 | Emergency Department Note ---
Disposition Clinical Impression: Acute exacerbation of chronic obstructive airways disease Disposition: Admitted As Inpatient Referrals: Shanelle Nieves CNP [Primary Care Provider] - General Adult HPI - General Chief complaint: ED Shortness of Breath/Dyspnea Stated complaint: WANDA Time Seen by Provider: 08/07/18 09:53 Source: patient, EMS Mode of arrival: EMS Limitations: physical limitation - History of Present Illness Pain Scale: 6 - Related Data Home Medications Medication Instructions Recorded Confirmed Albuterol Sulfate [Ventolin Hfa] 2 puff IH Q6H PRN 04/24/18 04/24/18 Atorvastatin [Lipitor] 40 mg PO HS 04/24/18 04/24/18 Budesonide/Formoterol 160/4.5 2 puff IH BIDR 04/24/18 04/24/18 [Symbicort 160/4.5] Celecoxib [Celebrex] 200 mg PO DAILY 04/24/18 04/24/18 Ferrous Sulfate [Iron] 325 mg PO DAILY 04/24/18 04/24/18 Ipratropium/Albuterol Sulfate 2 puff IH QID PRN 04/24/18 04/24/18 [Combivent Respimat 20-100 Mcg] Levothyroxine [Synthroid] 75 mcg PO 0630 04/24/18 04/24/18 Linagliptin [Tradjenta] 5 mg PO DAILY 04/24/18 04/24/18 Lisinopril [Zestril] 5 mg PO DAILY 04/24/18 04/24/18 Multivitamin with Minerals/Lut 1 tab PO DAILY 04/24/18 04/24/18 [Cerovite Senior Tablet] Pantoprazole Sodium [Protonix] 40 mg PO DAILY 04/24/18 04/24/18 Pregabalin [Lyrica] 100 mg PO BID 04/24/18 04/24/18 Propantheline [place] 15 mg PO DAILY 04/24/18 04/24/18 Terbinafine HCl 250 mg PO DAILY 04/24/18 04/24/18 Tizanidine HCl 2 mg PO Q8H PRN 04/24/18 04/24/18 Zolpidem [Ambien] 10 mg PO HS 04/24/18 04/24/18 metFORMIN [Glucophage] 250 mg PO BIDWM 04/24/18 04/24/18 Allergies Allergy/AdvReac Type Severity Reaction Status Date / Time Amoxicillin Allergy Swelling Verified 04/24/18 07:49 of Lip/Tongue/Throat ampicillin Allergy Swelling Verified 04/24/18 07:49 of Lip/Tongue/Throat Penicillins Allergy Swelling Verified 04/24/18 07:49 of Lip/Tongue/Throat Past Medical History - Past Medical History Medical history: Reports: arthritis, asthma, COPD, diabetes, hyperlipidemia, hypertension, thyroid disease Surgical history: Reports: herniorrhaphy, hysterectomy Psychiatric history: Reports: no psych history - Social History Smoking Status: Former smoker Smokeless Tobacco Status: No Alcohol use: Reports: rarely Drug use: Reports: none Physical Exam - General Limitations: physical limitation General appearance: alert, anxious Course Vital Signs Temperature 101.6 F H 08/07/18 09:59 Pulse Rate 128 08/07/18 09:59 Respiratory Rate 21 08/07/18 09:59 Blood Pressure 167/105 08/07/18 09:59 O2 Sat by Pulse Oximetry 98 08/07/18 09:59 Temperature 101.6 F H 08/07/18 09:59 Pulse Rate 122 08/07/18 11:18 Respiratory Rate 23 08/07/18 11:18 Blood Pressure 106/79 08/07/18 11:18 O2 Sat by Pulse Oximetry 93 08/07/18 11:18 Oxygen Delivery Oxygen Delivery Bipap Medical Decision Making - Lab Data Result diagrams: 08/07/18 10:10 08/07/18 10:10 Lab Results 08/07/18 08/07/18 08/07/18 Range/Units 10:10 10:10 10:10 WBC 10.4 (4.3-11.1) K/mcL RBC 4.96 (3.82-4.97) M/mcL Hgb 12.5 (11.5-15.4) g/dL Hct 39.8 (35.3-44.9) % MCV 80.2 L (83.0-100.0) fL MCH 25.2 L (28.0-33.3) pg MCHC 31.4 L (31.6-35.5) g/dL RDW 16.1 H (11.5-14.5) % Plt Count 350 (140-400) K/mcL MPV 8.8 L (9.4-12.4) fL Immature Gran % 0.4 (0-4) % Seg Neutrophils % 72.0 % Lymphocytes % 18.6 % Monocytes % 8.1 % Eosinophils % 0.1 % Basophils % 0.8 % Neutrophils # 7.5 (1.6-8.9) K/mcL Lymphocytes # 1.9 (0.6-4.6) K/mcL Monocytes # 0.8 (0.0-1.3) K/mcL Eosinophils # 0.0 (0.0-0.6) K/mcL Basophils # 0.1 (0.0-0.2) K/mcL VBG pH (7.32-7.42) pH Units VBG pCO2 (41-51) mmHg VBG pO2 (25-50) mmHg VBG HCO3 (21-27) mEq/L Sodium 134 L (136-145) mEq/L Potassium 3.9 (3.5-5.1) mEq/L Chloride 96 L (98-107) mEq/L Carbon Dioxide 28 (23-29) mEq/L BUN 9 (8-23) mg/dL Creatinine 0.79 (0.60-1.20) mg/dL Est GFR ( Amer) > 60 (> 60) Est GFR (Non-Af Amer) > 60 (> 60) BUN/Creatinine Ratio 11 (6-26) Glucose 182 H (70-105) mg/dL Calculated Osmolality 281 (280-300) Lactic Acid 0.7 (0.5-2.2) mmol/L Calcium 9.4 (8.6-10.3) mg/dL Troponin I < 0.03 (< 0.04) ng/mL B-Natriuretic Peptide (Less than 100) pg/mL 08/07/18 08/07/18 Range/Units 10:10 10:32 WBC (4.3-11.1) K/mcL RBC (3.82-4.97) M/mcL Hgb (11.5-15.4) g/dL Hct (35.3-44.9) % MCV (83.0-100.0) fL MCH (28.0-33.3) pg MCHC (31.6-35.5) g/dL RDW (11.5-14.5) % Plt Count (140-400) K/mcL MPV (9.4-12.4) fL Immature Gran % (0-4) % Seg Neutrophils % % Lymphocytes % % Monocytes % % Eosinophils % % Basophils % % Neutrophils # (1.6-8.9) K/mcL Lymphocytes # (0.6-4.6) K/mcL Monocytes # (0.0-1.3) K/mcL Eosinophils # (0.0-0.6) K/mcL Basophils # (0.0-0.2) K/mcL VBG pH 7.38 (7.32-7.42) pH Units VBG pCO2 49 (41-51) mmHg VBG pO2 106 H (25-50) mmHg VBG HCO3 29 H (21-27) mEq/L Sodium (136-145) mEq/L Potassium (3.5-5.1) mEq/L Chloride (98-107) mEq/L Carbon Dioxide (23-29) mEq/L BUN (8-23) mg/dL Creatinine (0.60-1.20) mg/dL Est GFR ( Amer) (> 60) Est GFR (Non-Af Amer) (> 60) BUN/Creatinine Ratio (6-26) Glucose (70-105) mg/dL Calculated Osmolality (280-300) Lactic Acid (0.5-2.2) mmol/L Calcium (8.6-10.3) mg/dL Troponin I (< 0.04) ng/mL B-Natriuretic Peptide 38 (Less than 100) pg/mL Critical Care Time Critical Care Time: Yes Total Critical Care Time: 35 Attestation: Critical care time 35 minutes spent in medical management of acute COPD exacerbation requiring BiPAP management. Attestation Statement - Attestation Attestation: I examined this patient and my medical decision-making was reviewed with the Resident Physician. I agree with the documented findings, disposition and treatment plan as described except to the extent set forth below. 72-year-old female presents emergency room for shortness of breath. History of COPD. Patient was tachypnea in the mesentery stress. She was placed on a BiPAP machine. She seemed to have improved after being on the machine for over an hour. She was given steroids and breathing treatments in the BiPAP machine. She is doing much better at this time. Patient will be admitted for COPD exacerbation. D-dimer is still pending. Remaining cardiac labs are negative. Chest x-ray did not show any pneumonia.
[2018-08-07] MEDS ORDERED: Isovue-370 500 ML BOTTLE IVP ONE (12:02)
[2018-08-07] MEDS ORDERED: 0.9 % Sodium Chloride 1,000 ML IVC SCH (13:45)
--- NOTE | 2018-08-07 13:50 | Internal Med History&Physical ---
Date of Encounter: 08/07/18 Time of Encounter: 13:47 Internal Medicine - H&P: HPI Chief complaint: SOB Admitted From: Home Plans for Post Hospital Care: Home History of present illness: Ms. Majano is a 72 year old female with history of hypothyroidism, COPD on home oxygen presented to the emergency department with complaint of shortness of breath. As per patient her shortness of breath started 5 days prior to admissi on and has progressively worsened to the point that she decided to come to the emergency department for further evaluation. She did not seek any medical attention from her primary care doctor nor the operations specialist she follows up with. She denies recent antibiotic use. Shortness of breath is also associated with cough without productive sputum. She denies hemoptysis. She denies fever, chills, chest pain, palpitations, abdominal pain, nausea, vomiting, diarrhea, prolonged immobilization or calf tenderness. She reports that her shortness of breath is alleviated with rest and worsens with exertion. While the emergency department she received steroids and was placed on BiPAP with antibiotics with minimal improvement in her symptoms. She is full code. she has never required intubation for COPD exacerbation. she is compliant with her medications. Past Med Surg Social Fam HX - Past Medical History Medical history: arthritis, asthma, COPD, diabetes, hyperlipidemia, hypertension, thyroid disease Psychiatric history: no psych history - Past Surgical History Surgical History: herniorrhaphy, hysterectomy Additional surgical history: colonoscopy,tubal ligation,kyphoplasty - Social History Smoking Status: Former smoker Smokeless Tobacco Status: No Alcohol use: rarely Drug use: none Internal Medicine - H&P: Meds Albuterol Sulfate [Ventolin Hfa] 2 puff IH Q6H PRN 04/24/18 [History] Atorvastatin [Lipitor] 40 mg PO HS 04/24/18 [History] Budesonide/Formoterol 160/4.5 [Symbicort 160/4.5] 2 puff IH BIDR 04/24/18 [History] Celecoxib [Celebrex] 200 mg PO DAILY 04/24/18 [History] Ferrous Sulfate [Iron] 325 mg PO DAILY 04/24/18 [History] Ipratropium/Albuterol Sulfate [Combivent Respimat 20-100 Mcg] 2 puff IH QID PRN 04/24/18 [History] Levothyroxine [Synthroid] 75 mcg PO 0630 04/24/18 [History] Linagliptin [Tradjenta] 5 mg PO DAILY 04/24/18 [History] Lisinopril [Zestril] 5 mg PO DAILY 04/24/18 [History] Multivitamin with Minerals/Lut [Cerovite Senior Tablet] 1 tab PO DAILY 04/24/18 [History] Pantoprazole Sodium [Protonix] 40 mg PO DAILY 04/24/18 [History] Pregabalin [Lyrica] 100 mg PO BID 04/24/18 [History] Zolpidem [Ambien] 10 mg PO HS 04/24/18 [History] metFORMIN [Glucophage] 250 mg PO BIDWM 04/24/18 [History] Allergy/AdvReac Type Severity Reaction Status Date / Time Amoxicillin Allergy Swelling Verified 04/24/18 07:49 of Lip/Tongue/Throat ampicillin Allergy Swelling Verified 04/24/18 07:49 of Lip/Tongue/Throat Penicillins Allergy Swelling Verified 04/24/18 07:49 of Lip/Tongue/Throat glycopyrrolate AdvReac See Verified 08/07/18 14:08 Comments All Systems PM: A 10-system review of systems was performed and is negative for pertinent findings except as documented above in the HPI. - Constitutional Vitals: Temp Pulse Resp BP Pulse Ox 101.6 F H 122 23 106/79 93 08/07/18 09:59 08/07/18 11:18 08/07/18 11:18 08/07/18 11:18 08/07/18 11:18 Exam: General: Patient is alert, oriented, no acute distress, obese, on BiPAP, speaks in 5 word sentences. Head: atraumatic, normocephalic, Eye: normal appearance, PERRL, no scleral icterus, no conjunctival injection ENT: mucous membranes moist, normal external ear exam Neck: normal inspection, trachea midline, full ROM, no carotid bruits Chest: normal inspection, symmetric chest rise Respiratory: Decreased breath sounds bilaterally, wheezing in the anterior chest, could not appreciate any crackles. Cardiovascular: Tachycardic, s1 and s2 No clicks, rubs, gallops, or murmors. Abdomen: Bowel sounds present normoactive x-4 quadrants. Abdomen is soft, nondistended. no Epigastric tenderness. No guarding or rebound. No organomegaly noted, obese musculoskeletal: Spontaneously moving all extremities. no edema, no calf tenderness Skin: warm, dry, intact. Neuro: Alert and oriented x4. No focal deficit Psych: Patient's affect is normal Internal Med - H&P Results - Labs CBC & Chem 7: 08/07/18 10:10 08/07/18 10:10 Labs: Short CBC 08/07/18 Range/Units 10:10 WBC 10.4 (4.3-11.1) K/mcL Hgb 12.5 (11.5-15.4) g/dL Hct 39.8 (35.3-44.9) % Plt Count 350 (140-400) K/mcL Neutrophils # 7.5 (1.6-8.9) K/mcL BMP 08/07/18 10:10 Sodium 134 L Potassium 3.9 Chloride 96 L Carbon Dioxide 28 BUN 9 Creatinine 0.79 Glucose 182 H Calcium 9.4 Cardiac Enzymes 08/07/18 Range/Units 10:10 Troponin I < 0.03 (< 0.04) ng/mL - ABG Interpretation ABG results: 08/07/18 10:32 VBG pH 7.38 VBG pCO2 49 VBG pO2 106 H VBG HCO3 29 H - EKG Data -: EKG Interpreted by Myself EKG shows normal: sinus rhythm (None nonspecific T-wave abnormalities, right atrial enlargement.), axis (Right) - EKG Data Prior EKG available for review: yes When compared to previous EKG: there are significant changes (RAD, SHONA, sinust tachycardia) - Impressions ITS Impressions Chest X-Ray 08/07/18 09:58 IMPRESSION: No acute cardiopulmonary abnormality. D/ / Diego Corrales MD / Diego Corrales MD Interpreting Provider: Diego Corrales MD Chest CTA 08/07/18 12:02 IMPRESSION: No evidence of pulmonary embolism or acute pulmonary abnormality. Stable centrilobular emphysematous changes. Mildly prominent left hilar lymph node measuring 1.3 x 1.4 cm. Calcified left upper lobe nodule. Stable noncalcified medial right lower lobe pulmonary nodule measuring 4 mm. This finding remains stable as compared to 09/20/2017 study and low-dose lung screening CT in 1 year recommended. D/ / Clay Saxena MD / Clay Saxena MD Interpreting Provider: Clay Saxena MD - Assessment and plan (1) Acute exacerbation of chronic obstructive airways disease Current Visit: Yes Status: Acute Assessment and plan: acute COPD exacerbation secondary to CAP started on levaquin Received Solu-Medrol 125 mg no emergency department continue with 40 mg every 8 hours DuoNeb's Continue home inhalers Urine antigens, sputum cultures, respiratory viral panel BiPAP as needed for respiratory distress Oxygen via nasal cannula keep saturations above 92%avoid over oxygenation. (2) CAP (community acquired pneumonia) Current Visit: Yes Status: Acute Assessment and plan: started on levaquin ( allergic to penicillin) follow cx as above. Qualifiers: Laterality: unspecified laterality Qualified Code(s): J18.9 - Pneumonia, unspecified organism (3) Sepsis Current Visit: Yes Status: Acute Assessment and plan: Sepsis secondary to community-acquired pneumonia Fever of 101.6, tachycardia 128, tachypneic 21 Was started on antibiotics about as above Follow cultures Lactic acid 0.7 Qualifiers: Sepsis type: sepsis due to unspecified organism Qualified Code(s): A41.9 - Sepsis, unspecified organism (4) Acute respiratory failure with hypoxia Current Visit: Yes Status: Acute Assessment and plan: Secondary to above Ruled out pulmonary embolism- CTPA report as below Management as above Bipap PRN for respiratory distress CT chest: IMPRESSION: No evidence of pulmonary embolism or acute pulmonary abnormality. Stable centrilobular emphysematous changes. Mildly prominent left hilar lymph node measuring 1.3 x 1.4 cm. Calcified left upper lobe nodule. Stable noncalcified medial right lower lobe pulmonary nodule measuring 4 mm. This finding remains stable as compared to 09/20/2017 study and low-dose lung screening CT in 1 year recommended. (5) DMII (diabetes mellitus, type 2) Current Visit: No Status: Chronic Assessment and plan: Hold home oral hypoglycemic agents Started on insulin sliding scale adjust as per fingersticks A1c in a.m. Qualifiers: Diabetes mellitus adolescent specialist insulin use: unspecified usp insulin use status Diabetes mellitus complication status: without complication Qualified Code(s): E11.9 - Type 2 diabetes mellitus without complications (6) HTN (hypertension) Current Visit: No Status: Chronic Assessment and plan: We will resume home medications if not contraindicated. Qualifiers: Hypertension type: essential hypertension Qualified Code(s): I10 - Essential (primary) hypertension (7) Hypothyroid Current Visit: No Status: Chronic Assessment and plan: Continue home Synthroid dose TSH in a.m. Qualifiers: Hypothyroidism type: acquired Qualified Code(s): E03.9 - Hypothyroidism, unspecified (8) Obesity (BMI 30.0-34.9) Current Visit: Yes Status: Acute Assessment and plan: was counseled (9) DVT prophylaxis Current Visit: Yes Status: Acute Assessment and plan: Heparin subcutaneous - Time Spent With Patient Total time spent is greater than 50% in coordination of care (as documented) at patient's floor/unit and/or counseling patient:
[2018-08-07] MEDS ORDERED: Naloxone 0.4 MG/ML INJ IVP PRN (14:00)
[2018-08-07 15:18] LABS: Bilirubin,Urine Negative (Negative); Blood,Urine Negative (Negative); Clarity,Urine Clear (Clear); Color,Urine Yellow (Yellow); Glucose,Urine (UA) 100 mg/dL (Normal); Ketones,Urine Negative (Negative); Leukocyte Esterase,Urine Negative (Negative); Nitrite,Urine Negative (Negative); Protein,Urine Trace mg/dL (Neg-Trace); Specific Gravity,Urine > 1.030 (1.010-1.025); Urobilinogen,Urine Normal (Normal)
[2018-08-07 15:22] LABS: Bacteria,Urine None Seen per hpf (None-Few); Hyaline Casts,Urine None Seen per lpf (None-Few); RBC,Urine 0-3 per hpf (0-3); Squamous Epithelial Cell,Urine Moderate per lpf (None-Few); WBC,Urine 0-3 per hpf (0-3)
[2018-08-07 15:47] LABS: Hematocrit 40.2 % (35.3-44.9); Hemoglobin 12.9 g/dL (11.5-15.4); Mean Corpuscular HGB Conc 32.1 g/dL (31.6-35.5); Mean Corpuscular Hemoglobin 25.5 pg (28.0-33.3); Mean Corpuscular Volume 79.6 fL (83.0-100.0); Mean Platelet Volume 8.7 fL (9.4-12.4); Platelet Count 339 K/mcL (140-400); Red Blood Count 5.05 M/mcL (3.82-4.97); Red Cell Distribution Width 16.2 % (11.5-14.5)
[2018-08-07] MEDS: Ipratropium/Albuterol Neb 3 ML IH SCH ×2 (15:55→20:29)
[2018-08-07] MEDS ORDERED: Dextrose 4 GM Chewable Tablets PO PRN ×2 (17:37)
[2018-08-07] MEDS ORDERED: Dextrose Gel 15 GM/37.5 ML TUBE PO PRN ×2 (17:37)
[2018-08-07] MEDS ORDERED: *HR* Dextrose 50 % in Water (Syg) 50 ML SYRINGE IVP PRN (17:37)
[2018-08-07] MEDS ORDERED: D5% in Water 1,000 ML IVC PRN (17:37)
[2018-08-07] MEDS: *HR* Heparin 5,000 UNIT/ML VIAL SQ SCH ×2 (17:51→21:50)
[2018-08-07] MEDS ORDERED: Insulin LISPRO 300 UNITS/3 ML VIAL SQ SCH ×2 (18:00→21:15)
[2018-08-07] MEDS: MethylPREDNISolone 40 MG/ML VIAL IVP SCH ×2 (18:15→23:52)
[2018-08-07] MEDS: Levofloxacin 750 MG/150 ML 750 MG/150 ML BAG IVPB SCH (18:16)
[2018-08-07] MEDS ORDERED: Albuterol 2.5 MG/3 ML NEBULIZER ONE (18:56)
[2018-08-07] MEDS: Albuterol 2.5 MG/3 ML NEBULIZER IH ONE ×2 (18:59→21:09)
[2018-08-07] MEDS: Budesonide/Formoterol 160/4.5 1 PUFF INH IH SCH (20:29)
[2018-08-07] MEDS: Pregabalin 50 MG CAPSULE PO SCH (21:49)
[2018-08-08] MEDS: Ipratropium/Albuterol Neb 3 ML IH SCH ×7 (00:24→23:19)
[2018-08-08 01:09] LABS: Adenovirus Not Detected (Not Detect); Bordetella Pertussis Not Detected (Not Detect); Chlamydophila pneumoniae Not Detected (Not Detect); Coronavirus 229E Not Detected (Not Detect); Coronavirus HKU1 Not Detected (Not Detect); Coronavirus NL63 Not Detected (Not Detect); Coronavirus OC43 Not Detected (Not Detect); Human Metapneumovirus Not Detected (Not Detect); Human Rhinovirus/Enterovirus Not Detected (Not Detect); Influenza A Subtype 2009 H1 Not Detected (Not Detect); Influenza A Untypeable Not Detected (Not Detect); Influenza B Not Detected (Not Detect); Mycoplasma pneumoniae Not Detected (Not Detect); Parainfluenza Virus 1 Not Detected (Not Detect); Parainfluenza Virus 2 Not Detected (Not Detect); Parainfluenza Virus 3 DETECTED (Not Detect); Parainfluenza Virus 4 Not Detected (Not Detect); Respiratory Syncytial Virus Not Detected (Not Detect)
--- NOTE | 2018-08-08 03:56 | Event Note ---
Date of Encounter: 08/08/18 Time of Encounter: 03:41 Alerted by pts. nurse FILIPPO Woods that the pt. is positive for influenza 3. Droplet precautions ordered. Tamiflu 30 mg BID for five days ordered per Pharmacy recommendations.
[2018-08-08 04:27] LABS: Hematocrit 35.5 % (35.3-44.9); Hemoglobin 11.7 g/dL (11.5-15.4); Immature Platelets 1.1 % (1.1-6.1); Mean Corpuscular Hemoglobin 25.7 pg (28.0-33.3); Mean Platelet Volume 9.2 fL (9.4-12.4); Nucleated Red Blood Cells 0.2 /100 WBC (0); Platelet Count 376 K/mcL (140-400); Red Blood Count 4.55 M/mcL (3.82-4.97)
[2018-08-08 04:43] LABS: BUN/Creatinine Ratio 18 (6-26); Blood Urea Nitrogen 17 mg/dL (8-23); Calcium 9.4 mg/dL (8.6-10.3); Carbon Dioxide 28 mEq/L (23-29); Chloride 94 mEq/L (98-107); Glucose 207 mg/dL (70-105); Magnesium 2.4 mg/dL (1.6-2.6); Osmolality,Calculated 290 (280-300); Phosphorous 3.8 mg/dL (2.7-4.5); Potassium 4.2 mEq/L (3.5-5.1); Sodium 136 mEq/L (136-145); eGFR For Non-African Americans 58 (> 60)
[2018-08-08 04:57] LABS: Thyroid Stimulating Hormone 0.154 mcIU/mL (0.340-5.600)
[2018-08-08] MEDS: *HR* Heparin 5,000 UNIT/ML VIAL SQ SCH ×3 (05:36→20:58)
[2018-08-08 05:59] LABS: Basophils % 0.1 %; Eosinophils % 0.1 %; Lymphocytes % 12.1 %; Monocytes # 0.4 K/mcL (0.0-1.3); Monocytes % 4.4 %; Neutrophils # 6.7 K/mcL (1.6-8.9); Segmented Neutrophils % 82.3 %
--- NOTE | 2018-08-08 06:19 | Electrocardiograph Report ---
[facility] Test Date: 2018-08-07 Pat Name: Divya Majano Department: [id number] Room: 3B55 Gender: F Route Sales Person: : 1945 Requested By: Nas Parr Order Number: [id number] Reading MD: Jose Luis Licona Measurements Intervals [place] Rate: 128 P: 95 [place]: 167 QRS: 91 QRSD: 101 T: -22 QT: 301 QTc: 440 Interpretive Statements Sinus tachycardia Right axis deviation Nonspecific T abnormalities, inferior leads Electronically Signed On 08-08-2018 6:17:55 EST by Jose Luis Licona
[2018-08-08] MEDS: Budesonide/Formoterol 160/4.5 1 PUFF INH IH SCH ×2 (08:21→19:43)
[2018-08-08 08:31] LABS: Estimated Average Glucose 169 mg/dl; Hemoglobin A1C 7.5 %
[2018-08-08] MEDS ORDERED: Oseltamivir Phosphate 30 MG CAPSULE PO SCH (09:00)
[2018-08-08] MEDS: MethylPREDNISolone 40 MG/ML VIAL IVP SCH ×3 (09:25→23:31)
[2018-08-08] MEDS: Levofloxacin 750 MG/150 ML 750 MG/150 ML BAG IVPB SCH (09:26)
[2018-08-08] MEDS: Insulin LISPRO 300 UNITS/3 ML VIAL SQ SCH ×4 (09:26→20:57)
[2018-08-08] MEDS: Celecoxib 200 MG CAPSULE PO SCH (09:27)
[2018-08-08] MEDS: Multivit/Ca/Min/Fe/FA 1 TAB TABLET PO SCH (09:27)
[2018-08-08] MEDS: Pregabalin 50 MG CAPSULE PO SCH ×2 (09:27→20:58)
--- NOTE | 2018-08-08 19:27 | Internal Med Progress Note ---
Hospitalist Progress Note - Encounter Date of Encounter: 08/08/18 Time of Encounter: 14:00 - Subjective Interval History: Patient was seen and examined at bedside. Currently patient appears to be in mild respiratory distress with some conversational dyspnea. Currently on 4 L nasal cannula. We will continue to titrate discussed treatment plan with the patient who verbalized understanding. - Exam Vitals: Temp Pulse Resp BP Pulse Ox 98.3 F 100 18 138/75 93 08/08/18 14:52 08/08/18 14:52 08/08/18 15:36 08/08/18 14:52 08/08/18 15:36 Exam: General: Patient is alert, oriented, no acute distress, obese, on BiPAP, speaks in 5 word sentences. Head: atraumatic, normocephalic, Eye: normal appearance, PERRL, no scleral icterus, no conjunctival injection ENT: mucous membranes moist, normal external ear exam Neck: normal inspection, trachea midline, full ROM, no carotid bruits Chest: normal inspection, symmetric chest rise Respiratory: Decreased breath sounds bilaterally, no wheezing or crackles appreciated - moist cough Cardiovascular: Tachycardic, s1 and s2 No clicks, rubs, gallops, or murmors. Abdomen: Bowel sounds present normoactive x-4 quadrants. Abdomen is soft, nondistended. no Epigastric tenderness. No guarding or rebound. No organomegaly noted, obese musculoskeletal: Spontaneously moving all extremities. no edema, no calf tenderness Skin: warm, dry, intact. Neuro: Alert and oriented x4. No focal deficit Psych: Patient's affect is normal - Assessment and Plan (1) Acute exacerbation of chronic obstructive airways disease Current Visit: Yes Status: Acute Assessment and Plan: acute COPD exacerbation secondary to CAP -respiratory panel positive for parainfluenza 3 started on levaquin Received Solu-Medrol 125 mg no emergency department continue with 40 mg every 8 hours DuoNeb's Continue home inhalers Urine antigens, negative sputum cultures, pending respiratory viral panel positive for parainfluenza 3 BiPAP as needed for respiratory distress Oxygen via nasal cannula keep saturations above 92%avoid over oxygenation. (2) DMII (diabetes mellitus, type 2) Current Visit: No Status: Chronic Assessment and Plan: Hold home oral hypoglycemic agents Glucose elevated due to steroid Started on insulin sliding scale adjust as per fingersticks-increased to medium sliding scale A1c 7.5 (3) HTN (hypertension) Current Visit: No Status: Chronic Assessment and Plan: We will resume home medications if not contraindicated. (4) Hypothyroid Current Visit: No Status: Chronic Assessment and Plan: Continue home Synthroid dose (5) Acute respiratory failure with hypoxia Current Visit: Yes Status: Acute Assessment and Plan: Secondary to above Ruled out pulmonary embolism- CTPA report as below Management as above Bipap PRN for respiratory distress Positive parainfluenza 3 Continues to display mild respiratory distress with conversational dyspnea CT chest: IMPRESSION: No evidence of pulmonary embolism or acute pulmonary abnormality. Stable centrilobular emphysematous changes. Mildly prominent left hilar lymph node measuring 1.3 x 1.4 cm. Calcified left upper lobe nodule. Stable noncalcified medial right lower lobe pulmonary nodule measuring 4 mm. This finding remains stable as compared to 09/20/2017 study and low-dose lung screening CT in 1 year recommended. (6) DVT prophylaxis Current Visit: Yes Status: Acute Assessment and Plan: Heparin subcutaneous (7) Sepsis Current Visit: Yes Status: Acute Assessment and Plan: Sepsis secondary to community-acquired pneumonia Fever of 101.6, tachycardia 128, tachypneic 21 Was started on antibiotics about as above Follow cultures-pending Lactic acid 0.7 Respiratory status improving vital signs are improving afebrile heart rate 100 respiratory rate 16 and 19 (8) CAP (community acquired pneumonia) Current Visit: Yes Status: Acute (9) Obesity (BMI 30.0-34.9) Current Visit: Yes Status: Acute - Time Spent with Patient Total time spent is greater than 50% in coordination of care (as documented) at patient's floor/unit and/or counseling patient: Internal Medicine: Result - Labs CBC & Chem 7: 08/08/18 04:05 08/08/18 04:05 Labs: Short CBC 08/08/18 Range/Units 04:05 WBC 8.1 (4.3-11.1) K/mcL Hgb 11.7 (11.5-15.4) g/dL Hct 35.5 (35.3-44.9) % Plt Count 376 (140-400) K/mcL Neutrophils # 6.7 (1.6-8.9) K/mcL BMP 08/08/18 04:05 Sodium 136 Potassium 4.2 Chloride 94 L Carbon Dioxide 28 BUN 17 Creatinine 0.95 Glucose 207 H Calcium 9.4 - ABG Interpretation ABG results: PT/INR, D-dimer D-Dimer 846 ng/mLFEU (0-500) H 08/07/18 10:10 Consult Discharge Plan - Plan Referrals: Shanelle Nieves CNP [Primary Care Provider] - (Appointment has been requested. Our offices will call with an appointment time and date.) (2) DMII (diabetes mellitus, type 2) Qualifiers: Diabetes mellitus halfway insulin use: unspecified halfway insulin use status Diabetes mellitus complication status: without complication Qualified Code(s): E11.9 - Type 2 diabetes mellitus without complications (3) HTN (hypertension) Qualifiers: Hypertension type: essential hypertension Qualified Code(s): I10 - Essential (primary) hypertension (4) Hypothyroid Qualifiers: Hypothyroidism type: acquired Qualified Code(s): E03.9 - Hypothyroidism, unspecified (7) Sepsis Qualifiers: Sepsis type: sepsis due to unspecified organism Qualified Code(s): A41.9 - Sepsis, unspecified organism (8) CAP (community acquired pneumonia) Qualifiers: Laterality: unspecified laterality Qualified Code(s): J18.9 - Pneumonia, unspecified organism
[2018-08-09] MEDS: Ipratropium/Albuterol Neb 3 ML IH SCH ×5 (03:41→20:30)
[2018-08-09 05:31] LABS: Basophils % 0.1 %; Hematocrit 36.8 % (35.3-44.9); Hemoglobin 11.7 g/dL (11.5-15.4); Immature Granulocytes % 0.5 % (0-4); Lymphocytes # 1.6 K/mcL (0.6-4.6); Lymphocytes % 9.6 %; Mean Corpuscular HGB Conc 31.8 g/dL (31.6-35.5); Mean Corpuscular Hemoglobin 25.7 pg (28.0-33.3); Mean Corpuscular Volume 80.7 fL (83.0-100.0); Mean Platelet Volume 9.3 fL (9.4-12.4); Monocytes # 0.6 K/mcL (0.0-1.3); Monocytes % 3.8 %; Neutrophils # 14.1 K/mcL (1.6-8.9); Platelet Count 373 K/mcL (140-400); Red Blood Count 4.56 M/mcL (3.82-4.97); Red Cell Distribution Width 16.2 % (11.5-14.5)
[2018-08-09 05:55] LABS: BUN/Creatinine Ratio 28 (6-26); Blood Urea Nitrogen 27 mg/dL (8-23); Calcium 9.5 mg/dL (8.6-10.3); Carbon Dioxide 30 mEq/L (23-29); Chloride 95 mEq/L (98-107); Glucose 284 mg/dL (70-105); Osmolality,Calculated 293 (280-300); Potassium 4.1 mEq/L (3.5-5.1); Sodium 134 mEq/L (136-145); eGFR For Non-African Americans 56 (> 60)
[2018-08-09] MEDS: *HR* Heparin 5,000 UNIT/ML VIAL SQ SCH ×3 (06:35→21:38)
[2018-08-09] MEDS: Budesonide/Formoterol 160/4.5 1 PUFF INH IH SCH ×2 (07:54→20:30)
[2018-08-09] MEDS: Levofloxacin 750 MG/150 ML 750 MG/150 ML BAG IVPB SCH (08:24)
[2018-08-09] MEDS: Insulin LISPRO 300 UNITS/3 ML VIAL SQ SCH ×4 (08:25→21:37)
[2018-08-09] MEDS: Multivit/Ca/Min/Fe/FA 1 TAB TABLET PO SCH (08:25)
[2018-08-09] MEDS: MethylPREDNISolone 40 MG/ML VIAL IVP SCH ×2 (08:25→16:06)
[2018-08-09] MEDS: Celecoxib 200 MG CAPSULE PO SCH (08:25)
[2018-08-09] MEDS: Pregabalin 50 MG CAPSULE PO SCH ×2 (08:25→21:38)
--- NOTE | 2018-08-09 13:16 | Internal Med Progress Note ---
Hospitalist Progress Note - Encounter Date of Encounter: 08/09/18 Time of Encounter: 13:14 - Subjective Interval History: Pt seen and examined in the room. She reported improved sob and cough. No fever, chills, or night sweats. No chest pain, syncope, or palpitation. - Exam Vitals: Temp Pulse Resp BP Pulse Ox 98.0 F 96 18 145/73 97 08/09/18 11:16 08/09/18 11:16 08/09/18 11:25 08/09/18 11:16 08/09/18 11:25 Exam: General: Patient is alert, oriented, no acute distress, obese, on BiPAP, speaks in 5 word sentences. Head: atraumatic, normocephalic, Eye: normal appearance, PERRL, no scleral icterus, no conjunctival injection ENT: mucous membranes moist, normal external ear exam Neck: normal inspection, trachea midline, full ROM, no carotid bruits Chest: normal inspection, symmetric chest rise Respiratory: Decreased breath sounds bilaterally, no wheezing or crackles appreciated - moist cough Cardiovascular: Tachycardic, s1 and s2 No clicks, rubs, gallops, or murmors. Abdomen: Bowel sounds present normoactive x-4 quadrants. Abdomen is soft, nondistended. no Epigastric tenderness. No guarding or rebound. No organomegaly noted, obese musculoskeletal: Spontaneously moving all extremities. no edema, no calf tenderness Skin: warm, dry, intact. Neuro: Alert and oriented x4. No focal deficit Psych: Patient's affect is normal - Assessment and Plan (1) DMII (diabetes mellitus, type 2) Current Visit: No Status: Chronic Assessment and Plan: Hold home oral hypoglycemic agents Glucose elevated due to steroid Started on insulin sliding scale adjust as per fingersticks-increased to medium sliding scale A1c 7.5 (2) HTN (hypertension) Current Visit: No Status: Chronic Assessment and Plan: BP controlled, continue home meds. (3) Hypothyroid Current Visit: No Status: Chronic Assessment and Plan: TSH slightly lower than normal, continue home dose of synthroid. (4) Acute exacerbation of chronic obstructive airways disease Current Visit: Yes Status: Acute Assessment and Plan: 08/08 acute COPD exacerbation secondary to CAP -respiratory panel positive for parainfluenza 3 started on levaquin Received Solu-Medrol 125 mg no emergency department continue with 40 mg every 8 hours DuoNeb's Continue home inhalers Urine antigens, negative sputum cultures, pending respiratory viral panel positive for parainfluenza 3 BiPAP as needed for respiratory distress Oxygen via nasal cannula keep saturations above 92%avoid over oxygenation. 08/09 Respiratroy panel positive for parainfluenza. IV abx dc'ed improving, continue current treatment. wean off O2. possible dc in am. (5) Acute respiratory failure with hypoxia Current Visit: Yes Status: Acute Assessment and Plan: 08/08 Secondary to above Ruled out pulmonary embolism- CTPA report as below Management as above Bipap PRN for respiratory distress Positive parainfluenza 3 Continues to display mild respiratory distress with conversational dyspnea CT chest: IMPRESSION: No evidence of pulmonary embolism or acute pulmonary abnormality. Stable centrilobular emphysematous changes. Mildly prominent left hilar lymph node measuring 1.3 x 1.4 cm. Calcified left upper lobe nodule. Stable noncalcified medial right lower lobe pulmonary nodule measuring 4 mm. This finding remains stable as compared to 09/20/2017 study and low-dose lung screening CT in 1 year recommended. 08/09 Same as above. (6) DVT prophylaxis Current Visit: Yes Status: Acute Assessment and Plan: Heparin subcutaneous (7) Sepsis Current Visit: Yes Status: Ruled-out (8) CAP (community acquired pneumonia) Current Visit: Yes Status: Acute Assessment and Plan: Respiratory panel is positive for parainfluenza, IV abx dc'ed. (9) Obesity (BMI 30.0-34.9) Current Visit: Yes Status: Acute Assessment and Plan: was counseled - Time Spent with Patient Total time spent is greater than 50% in coordination of care (as documented) at patient's floor/unit and/or counseling patient: Greater than 35 minutes Plan of Care Discussed with: patient Internal Medicine: Result - Labs CBC & Chem 7: 08/09/18 04:46 08/09/18 04:46 Labs: Short CBC 08/09/18 Range/Units 04:46 WBC 16.4 H D (4.3-11.1) K/mcL Hgb 11.7 (11.5-15.4) g/dL Hct 36.8 (35.3-44.9) % Plt Count 373 (140-400) K/mcL Neutrophils # 14.1 H (1.6-8.9) K/mcL BMP 08/09/18 04:46 Sodium 134 L Potassium 4.1 Chloride 95 L Carbon Dioxide 30 H BUN 27 H Creatinine 0.98 Glucose 284 H Calcium 9.5 - ABG Interpretation ABG results: PT/INR, D-dimer D-Dimer 846 ng/mLFEU (0-500) H 08/07/18 10:10 Consult Discharge Plan - Plan Referrals: Shanelle Nieves, DRIVER LICENSE TECHNICIAN [Primary Care Provider] - (Appointment has been requested. Our offices will call with an appointment time and date.) (1) DMII (diabetes mellitus, type 2) Qualifiers: Diabetes mellitus snf insulin use: unspecified termination clerk insulin use st atus Diabetes mellitus complication status: without complication Qualified Code(s): E11.9 - Type 2 diabetes mellitus without complications (2) HTN (hypertension) Qualifiers: Hypertension type: essential hypertension Qualified Code(s): I10 - Essential (primary) hypertension (3) Hypothyroid Qualifiers: Hypothyroidism type: acquired Qualified Code(s): E03.9 - Hypothyroidism, unspecified (7) Sepsis Qualifiers: Sepsis type: sepsis due to unspecified organism Qualified Code(s): A41.9 - Sepsis, unspecified organism (8) CAP (community acquired pneumonia) Qualifiers: Laterality: unspecified laterality Qualified Code(s): J18.9 - Pneumonia, unspecified organism
[2018-08-10] MEDS: MethylPREDNISolone 40 MG/ML VIAL IVP SCH ×2 (00:02→10:30)
[2018-08-10] MEDS: Ipratropium/Albuterol Neb 3 ML IH SCH ×6 (00:20→20:24)
[2018-08-10 04:15] LABS: Basophils % 0.1 %; Hematocrit 35.3 % (35.3-44.9); Hemoglobin 11.1 g/dL (11.5-15.4); Lymphocytes # 1.5 K/mcL (0.6-4.6); Lymphocytes % 8.7 %; Mean Corpuscular HGB Conc 31.4 g/dL (31.6-35.5); Mean Corpuscular Hemoglobin 25.3 pg (28.0-33.3); Mean Corpuscular Volume 80.6 fL (83.0-100.0); Mean Platelet Volume 9.4 fL (9.4-12.4); Monocytes # 0.7 K/mcL (0.0-1.3); Neutrophils # 14.4 K/mcL (1.6-8.9); Platelet Count 374 K/mcL (140-400); Red Blood Count 4.38 M/mcL (3.82-4.97); Red Cell Distribution Width 16.2 % (11.5-14.5); Segmented Neutrophils % 86.2 %
[2018-08-10 04:25] LABS: BUN/Creatinine Ratio 31 (6-26); Blood Urea Nitrogen 29 mg/dL (8-23); Calcium 9.1 mg/dL (8.6-10.3); Carbon Dioxide 29 mEq/L (23-29); Chloride 99 mEq/L (98-107); Glucose 264 mg/dL (70-105); Osmolality,Calculated 291 (280-300); Potassium 4.6 mEq/L (3.5-5.1); Sodium 133 mEq/L (136-145); eGFR For Non-African Americans 58 (> 60)
[2018-08-10] MEDS: *HR* Heparin 5,000 UNIT/ML VIAL SQ SCH ×3 (05:53→21:41)
[2018-08-10] MEDS: Budesonide/Formoterol 160/4.5 1 PUFF INH IH SCH ×2 (07:35→20:24)
[2018-08-10] MEDS: Pregabalin 50 MG CAPSULE PO SCH ×2 (10:30→21:41)
[2018-08-10] MEDS: Multivit/Ca/Min/Fe/FA 1 TAB TABLET PO SCH (10:30)
[2018-08-10] MEDS: Celecoxib 200 MG CAPSULE PO SCH (10:31)
[2018-08-10] MEDS: Insulin LISPRO 300 UNITS/3 ML VIAL SQ SCH ×4 (10:33→21:42)
--- NOTE | 2018-08-10 13:46 | Internal Med Progress Note ---
Hospitalist Progress Note - Encounter Date of Encounter: 08/10/18 Time of Encounter: 13:44 - Subjective Interval History: Pt seen and examined in the room. She reported improved sob and cough. No fever, chills, or night sweats. No chest pain, syncope, or palpitation. - Exam Vitals: Temp Pulse Resp BP Pulse Ox 97.6 F 110 17 143/67 99 08/10/18 11:15 08/10/18 11:15 08/10/18 11:15 08/10/18 11:15 08/10/18 11:15 Exam: General: Patient is alert, oriented, no acute distress, obese, on BiPAP, speaks in 5 word sentences. Head: atraumatic, normocephalic, Eye: normal appearance, PERRL, no scleral icterus, no conjunctival injection ENT: mucous membranes moist, normal external ear exam Neck: normal inspection, trachea midline, full ROM, no carotid bruits Chest: normal inspection, symmetric chest rise Respiratory: Decreased breath sounds bilaterally, no wheezing or crackles appreciated - moist cough Cardiovascular: Tachycardic, s1 and s2 No clicks, rubs, gallops, or murmors. Abdomen: Bowel sounds present normoactive x-4 quadrants. Abdomen is soft, nondistended. no Epigastric tenderness. No guarding or rebound. No organomegaly noted, obese musculoskeletal: Spontaneously moving all extremities. no edema, no calf tenderness Skin: warm, dry, intact. Neuro: Alert and oriented x4. No focal deficit Psych: Patient's affect is normal - Assessment and Plan (1) DMII (diabetes mellitus, type 2) Current Visit: No Status: Chronic Assessment and Plan: Hold home oral hypoglycemic agents Glucose elevated due to steroid Started on insulin sliding scale adjust as per fingersticks-increased to medium sliding scale A1c 7.5 (2) HTN (hypertension) Current Visit: No Status: Chronic Assessment and Plan: BP controlled, continue home meds. (3) Hypothyroid Current Visit: No Status: Chronic Assessment and Plan: TSH slightly lower than normal, continue home dose of synthroid. (4) Acute exacerbation of chronic obstructive airways disease Current Visit: Yes Status: Acute Assessment and Plan: 08/08 acute COPD exacerbation secondary to CAP -respiratory panel positive for parainfluenza 3 started on levaquin Received Solu-Medrol 125 mg no emergency department continue with 40 mg every 8 hours DuoNeb's Continue home inhalers Urine antigens, negative sputum cultures, pending respiratory viral panel positive for parainfluenza 3 BiPAP as needed for respiratory distress Oxygen via nasal cannula keep saturations above 92%avoid over oxygenation. 08/09 Respiratroy panel positive for parainfluenza. IV abx dc'ed improving, continue current treatment. wean off O2. possible dc in am. 08/10 Improving, encourage ambulation. Change IV steroid to oral prednisone. Possible dc in am. (5) Acute respiratory failure with hypoxia Current Visit: Yes Status: Acute Assessment and Plan: 08/08 Secondary to above Ruled out pulmonary embolism- CTPA report as below Management as above Bipap PRN for respiratory distress Positive parainfluenza 3 Continues to display mild respiratory distress with conversational dyspnea CT chest: IMPRESSION: No evidence of pulmonary embolism or acute pulmonary abnormality. Stable centrilobular emphysematous changes. Mildly prominent left hilar lymph node measuring 1.3 x 1.4 cm. Calcified left upper lobe nodule. Stable noncalcified medial right lower lobe pulmonary nodule measuring 4 mm. This finding remains stable as compared to 09/20/2017 study and low-dose lung screening CT in 1 year recommended. 08/09 Same as above. 08/10 Same as above. (6) DVT prophylaxis Current Visit: Yes Status: Acute Assessment and Plan: Heparin subcutaneous (7) Sepsis Current Visit: Yes Status: Ruled-out (8) CAP (community acquired pneumonia) Current Visit: Yes Status: Acute Assessment and Plan: Respiratory panel is positive for parainfluenza, IV abx dc'ed. (9) Obesity (BMI 30.0-34.9) Current Visit: No Status: Chronic Assessment and Plan: was counseled - Time Spent with Patient Total time spent is greater than 50% in coordination of care (as documented) at patient's floor/unit and/or counseling patient: Greater than 35 minutes Plan of Care Discussed with: patient Internal Medicine: Result - Labs CBC & Chem 7: 08/10/18 03:39 08/10/18 03:39 Labs: Short CBC 08/10/18 Range/Units 03:39 WBC 16.7 H (4.3-11.1) K/mcL Hgb 11.1 L (11.5-15.4) g/dL Hct 35.3 (35.3-44.9) % Plt Count 374 (140-400) K/mcL Neutrophils # 14.4 H (1.6-8.9) K/mcL BMP 08/10/18 03:39 Sodium 133 L Potassium 4.6 Chloride 99 Carbon Dioxide 29 BUN 29 H Creatinine 0.95 Glucose 264 H Calcium 9.1 - ABG Interpretation ABG results: PT/INR, D-dimer D-Dimer 846 ng/mLFEU (0-500) H 08/07/18 10:10 Consult Discharge Plan - Plan Referrals: Shanelle Nieves CNP [Primary Care Provider] - (Appointment has been requested. Our offices will call with an appointment time and date.) (1) DMII (diabetes mellitus, type 2) Qualifiers: Diabetes mellitus ocean transportation intermediary insulin use: unspecified ocean transportation intermediary insulin use status Diabetes mellitus complication status: without complication Qualified Code(s): E11.9 - Type 2 diabetes mellitus without complications (2) HTN (hypertension) Qualifiers: Hypertension type: essential hypertension Qualified Code(s): I10 - Essential (primary) hypertension (3) Hypothyroid Qualifiers: Hypothyroidism type: acquired Qualified Code(s): E03.9 - Hypothyroidism, unspecified (7) Sepsis Qualifiers: Sepsis type: sepsis due to unspecified organism Qualified Code(s): A41.9 - Sepsis, unspecified organism (8) CAP (community acquired pneumonia) Qualifiers: Laterality: unspecified laterality Qualified Code(s): J18.9 - Pneumonia, unspecified organism
[2018-08-11] MEDS: Ipratropium/Albuterol Neb 3 ML IH SCH ×4 (00:35→11:40)
[2018-08-11 04:17] LABS: Basophils % 0.2 %; Hematocrit 33.6 % (35.3-44.9); Hemoglobin 10.8 g/dL (11.5-15.4); Immature Granulocytes % 1.2 % (0-4); Lymphocytes # 4.2 K/mcL (0.6-4.6); Lymphocytes % 23.9 %; Mean Corpuscular HGB Conc 32.1 g/dL (31.6-35.5); Mean Corpuscular Hemoglobin 25.7 pg (28.0-33.3); Mean Corpuscular Volume 79.8 fL (83.0-100.0); Mean Platelet Volume 9.1 fL (9.4-12.4); Monocytes # 1.2 K/mcL (0.0-1.3); Monocytes % 6.7 %; Neutrophils # 11.8 K/mcL (1.6-8.9); Platelet Count 354 K/mcL (140-400); Red Blood Count 4.21 M/mcL (3.82-4.97); Red Cell Distribution Width 16.1 % (11.5-14.5)
[2018-08-11 04:33] LABS: BUN/Creatinine Ratio 28 (6-26); Blood Urea Nitrogen 25 mg/dL (8-23); Calcium 9.1 mg/dL (8.6-10.3); Carbon Dioxide 34 mEq/L (23-29); Chloride 98 mEq/L (98-107); Glucose 180 mg/dL (70-105); Osmolality,Calculated 293 (280-300); Sodium 137 mEq/L (136-145); eGFR For Non-African Americans > 60 (> 60)
[2018-08-11] MEDS: *HR* Heparin 5,000 UNIT/ML VIAL SQ SCH (05:12)
[2018-08-11] MEDS: Budesonide/Formoterol 160/4.5 1 PUFF INH IH SCH (07:53)
[2018-08-11] MEDS ORDERED: predniSONE 20 MG TABLET PO SCH (09:00)
[2018-08-11] MEDS: Multivit/Ca/Min/Fe/FA 1 TAB TABLET PO SCH (09:13)
[2018-08-11] MEDS: Celecoxib 200 MG CAPSULE PO SCH (09:13)
[2018-08-11] MEDS: Pregabalin 50 MG CAPSULE PO SCH (09:13)
[2018-08-11] MEDS: Insulin LISPRO 300 UNITS/3 ML VIAL SQ SCH ×2 (09:14→11:27)
--- NOTE | 2018-08-11 11:04 | Discharge Summary ---
- NOTES TO OUTPATIENT PROVIDER Notes to Outpatient Provider: f/u with PCP within 2 weeks. Orders not resulted at time of discharge: Pending orders 08/07/18 10:43 Culture,Blood [BC] Stat 08/07/18 13:34 Culture,Sputum with Gram Stain [RM] Stat Date of Encounter: 08/11/18 Time of Encounter: 10:56 - Discharge Diagnosis (1) DMII (diabetes mellitus, type 2) Priority: Secondary Status: Chronic Qualifiers: Diabetes mellitus nursing home insulin use: unspecified nursing home insulin use status Diabetes mellitus complication status: without complication Qualified Code(s): E11.9 - Type 2 diabetes mellitus without complications (2) HTN (hypertension) Priority: Secondary Status: Chronic Qualifiers: Hypertension type: essential hypertension Qualified Code(s): I10 - Es sential (primary) hypertension (3) Hypothyroid Priority: Secondary Status: Chronic Qualifiers: Hypothyroidism type: acquired Qualified Code(s): E03.9 - Hypothyroidism, unspecified (4) Acute exacerbation of chronic obstructive airways disease Priority: Primary Status: Acute (5) Acute respiratory failure with hypoxia Priority: Primary Status: Acute (6) DVT prophylaxis Priority: Primary Status: Acute (7) Sepsis Priority: Primary Status: Ruled-out Qualifiers: Sepsis type: sepsis due to unspecified organism Qualified Code(s): A41.9 - Sepsis, unspecified organism (8) CAP (community acquired pneumonia) Priority: Primary Status: Acute Qualifiers: Laterality: unspecified laterality Qualified Code(s): J18.9 - Pneumonia, unspecified organism (9) Obesity (BMI 30.0-34.9) Priority: Secondary Status: Chronic Hospital course: Ms. Majano is a 72 year old female with history of hypothyroidism, COPD on home oxygen presented to the emergency department with complaint of shortness of breath. As per patient her shortness of breath started 5 days prior to admission and has progressively worsened to the point that she decided to come to the emergency department for further evaluation. 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 She denies recent antibiotic use. Shortness of breath is also associated with cough without productive sputum. She denies hemoptysis. She denies fever, chills, chest pain, palpitations, abdominal pain, nausea, vomiting, diarrhea, prolonged immobilization or calf tenderness. She reports that her shortness of breath is alleviated with rest and worsens with exertion. While the emergency department she received steroids and was placed on BiPAP with antibiotics with minimal improvement in her symptoms. She is full code. she has never required intubation for COPD exacerbation. she is compliant with her medications. Respiratory panel is positive for para-influenza virus. IV abx was dc'ed. Pt continued to receive IV steroid and bronchodilators. Her cough and sob have improved. IV steroid has been switched to oral prednisone. She has been ambulating and tolerating well. On the discharge day, O2 requirement has decreased to 2.5 L which was her home baseline. She is active. She is discharged home today and f/u with PCP within 2 weeks. Meds prescribed per pt requests. Discharge discussed with: patient Time spent discussing smoking cessation with patient: more than 10 minutes - Time Spent with Patient Total time spent providing and/or coordinating discharge services: 45 mins. Greater than 30 minutes - Discharge Medications Prescriptions: New Ipratropium/Albuterol Neb [Duoneb] 3 ml IH [id number] PRN #30 inhsol PRN Reason: Dyspnea predniSONE [PredniSONE] 10 mg PO DAILY #30 tablet Continue Albuterol Sulfate [Ventolin Hfa] 2 puff IH Q6H PRN PRN Reason: Shortness Of Breath Atorvastatin [Lipitor] 40 mg PO HS Celecoxib [Celebrex] 200 mg PO DAILY Ferrous Sulfate [Iron] 325 mg PO DAILY Ipratropium/Albuterol Sulfate [Combivent Respimat 20-100 Mcg] 2 puff IH QID PRN PRN Reason: Shortness Of Breath Levothyroxine [Synthroid] 75 mcg PO 0630 Lisinopril [Zestril] 5 mg PO DAILY metFORMIN [Glucophage] 250 mg PO BIDWM Multivitamin with Minerals/Lut [Cerovite Senior Tablet] 1 tab PO DAILY Zolpidem [Ambien] 10 mg PO HS Tizanidine HCl [Zanaflex] 2 mg PO TID PRN PRN Reason: Pain Budesonide/Formoterol 160/4.5 [Symbicort 160/4.5] 2 puff IH BIDR #1 applic Linagliptin [Tradjenta] 5 mg PO DAILY #30 tablet Pantoprazole Sodium [Protonix] 40 mg PO DAILY #30 tablet.dr Pregabalin [Lyrica] 100 mg PO BID 30 Days #60 capsule Home Medications: Albuterol Sulfate [Ventolin Hfa] 2 puff IH Q6H PRN 04/24/18 [History] Atorvastatin [Lipitor] 40 mg PO HS 04/24/18 [History] Celecoxib [Celebrex] 200 mg PO DAILY 04/24/18 [History] Ferrous Sulfate [Iron] 325 mg PO DAILY 04/24/18 [History] Ipratropium/Albuterol Sulfate [Combivent Respimat 20-100 Mcg] 2 puff IH QID PRN 04/24/18 [History] Levothyroxine [Synthroid] 75 mcg PO 0630 04/24/18 [History] Lisinopril [Zestril] 5 mg PO DAILY 04/24/18 [History] Multivitamin with Minerals/Lut [Cerovite Senior Tablet] 1 tab PO DAILY 04/24/18 [History] Zolpidem [Ambien] 10 mg PO HS 04/24/18 [History] metFORMIN [Glucophage] 250 mg PO BIDWM 04/24/18 [History] Budesonide/Formoterol 160/4.5 [Symbicort 160/4.5] 2 puff IH BIDR #1 applic 08/11/18 [Rx] Ipratropium/Albuterol Neb [Duoneb] 3 ml IH [id number] PRN #30 inhsol 08/11/18 [Rx] Linagliptin [Tradjenta] 5 mg PO DAILY #30 tablet 08/11/18 [Rx] Pantoprazole Sodium [Protonix] 40 mg PO DAILY #30 tablet. 08/11/18 [Rx] Pregabalin [Lyrica] 100 mg PO BID 30 Days #60 capsule 08/11/18 [Rx] Tizanidine HCl [Zanaflex] 2 mg PO TID PRN 08/11/18 [History] predniSONE [PredniSONE] 10 mg PO DAILY #30 tablet 08/11/18 [Rx] Allergies/Adverse Reactions: Allergy/AdvReac Type Severity Reaction Status Date / Time Amoxicillin Allergy Swelling Verified 04/24/18 07:49 of Lip/Tongue/Throat ampicillin Allergy Swelling Verified 04/24/18 07:49 of Lip/Tongue/Throat Penicillins Allergy Swelling Verified 04/24/18 07:49 of Lip/Tongue/Throat glycopyrrolate AdvReac See Verified 08/07/18 14:08 Comments Date of admission: 08/09/18 16:29 Primary care physician: Shanelle Nieves CNP Consults: 08/08/18 09:49 Consult to Nurse Navigator [CONS] Routine Comment: COPD, PNEUMONIA Anticipated date of discharge: 08/11/18 - Constitutional Vitals: Temp Pulse Resp BP Pulse Ox 98.2 F 87 16 166/90 90 08/11/18 07:35 08/11/18 07:35 08/11/18 07:53 08/11/18 07:35 08/11/18 07:53 General appearance: Present: cooperative, A&O X 3, answers questions appropriately Exam: General: Patient is alert, oriented, no acute distress, obese, on BiPAP, speaks in 5 word sentences. Head: atraumatic, normocephalic, Eye: normal appearance, PERRL, no scleral icterus, no conjunctival injection ENT: mucous membranes moist, normal external ear exam Neck: normal inspection, trachea midline, full ROM, no carotid bruits Chest: normal inspection, symmetric chest rise Respiratory: Decreased breath sounds bilaterally, no wheezing or crackles appreciated - moist cough Cardiovascular: Tachycardic, s1 and s2 No clicks, rubs, gallops, or murmors. Abdomen: Bowel sounds present normoactive x-4 quadrants. Abdomen is soft, nondistended. no Epigastric tenderness. No guarding or rebound. No organomegaly noted, obese musculoskeletal: Spontaneously moving all extremities. no edema, no calf tenderness Skin: warm, dry, intact. Neuro: Alert and oriented x4. No focal deficit Psych: Patient's affect is normal - Patient Status Disposition: Home, Self-Care Condition: Fair Functional capacity at discharge: independent ambulation Overall status at discharge: patient is progressing back to baseline - Discharge Instructions Follow Up With: Shanelle Nieves CNP [Primary Care Provider] - (Appointment has been requested. Our offices will call with an appointment time and date.) - Diet and Activity Activity: increase activity as tolerated Diet: diabetic diet, low fat, low cholesterol, low salt diet
[2018-08-11 11:20] VITALS: BP 156/81
== END 2018-08-11 14:15 | disposition home or self-care (01) | DRG 193 ==
LOC: EMEROOARM 09:52 → 3BNU 09:52
PROVIDERS: ADMIT Internal Medicine; ATTEND Internal Medicine

== ENCOUNTER 2019-06-19 07:32 | Inpatient (IN) ==
[2019-06-19] MEDS ORDERED: Ipratropium/Albuterol Neb 3 ML IH ONE (07:46)
[2019-06-19] MEDS ORDERED: Albuterol 2.5 MG/3 ML NEBULIZER IH ONE (07:46)
[2019-06-19] MEDS ORDERED: Azithromycin 500 MG in 0.9 % Sodium Chloride 250 ML IVPB ONE (07:46)
[2019-06-19] MEDS ORDERED: cefTRIAXone 1,000 MG in Water for inj. (sterile) 10 ML IVP ONE (07:46)
[2019-06-19] MEDS ORDERED: 0.9 % Sodium Chloride 1,000 ML IV ONE (08:02)
[2019-06-19 08:11] LABS: Basophils % 0.4 %; Eosinophils % 0.3 %; Hematocrit 36.6 % (35.3-44.9); Hemoglobin 11.9 g/dL (11.5-15.4); Immature Granulocytes % 0.3 % (0-4); Lymphocytes # 2.9 K/mcL (0.6-4.6); Lymphocytes % 30.3 %; Mean Corpuscular HGB Conc 32.5 g/dL (31.6-35.5); Mean Corpuscular Volume 80.1 fL (83.0-100.0); Monocytes # 0.9 K/mcL (0.0-1.3); Monocytes % 9.8 %; Neutrophils # 5.6 K/mcL (1.6-8.9); Platelet Count 262 K/mcL (140-400); Red Blood Count 4.57 M/mcL (3.82-4.97); Red Cell Distribution Width 16.6 % (11.5-14.5); Segmented Neutrophils % 58.9 %; White Blood Count 9.5 K/mcL (4.3-11.1)
[2019-06-19 08:29] LABS: Bilirubin,Urine Negative (Negative); Blood,Urine Trace (Negative); Clarity,Urine Cloudy (Clear); Color,Urine Yellow (Yellow); Glucose,Urine (UA) Normal (Normal); Ketones,Urine Negative (Negative); Leukocyte Esterase,Urine Large (Negative); Nitrite,Urine Negative (Negative); Protein,Urine Trace mg/dL (Neg-Trace); Specific Gravity,Urine 1.024 (1.010-1.025); Urobilinogen,Urine Normal (Normal)
[2019-06-19 08:30] LABS: Alanine Aminotransferase 23 Units/L (7-52); Albumin 4.1 g/dL (3.5-5.7); Albumin/Globulin Ratio 1.5 (1.1-2.2); Alkaline Phosphatase 117 Units/L (34-104); Aspartate Amino Transferase 21 Units/L (13-39); BUN/Creatinine Ratio 15 (6-26); Bilirubin,Direct 0.1 mg/dL (0.0-0.2); Bilirubin,Indirect 0.5 mg/dL (0.0-1.0); Bilirubin,Total 0.6 mg/dL (0.3-1.0); Blood Urea Nitrogen 12 mg/dL (8-23); Carbon Dioxide 30 mEq/L (23-29); Chloride 99 mEq/L (98-107); Globulin 2.7 g/dL (2.4-3.5); Glucose 164 mg/dL (70-105); Osmolality,Calculated 289 (280-300); Potassium 3.5 mEq/L (3.5-5.1); Sodium 138 mEq/L (136-145); Total Protein 6.8 g/dL (6.4-8.9); Troponin I < 0.03 ng/mL (< 0.04); eGFR For African Americans > 60 (> 60); eGFR For Non-African Americans > 60 (> 60)
[2019-06-19 08:42] LABS: Bacteria,Urine Many per hpf (None-Few); RBC,Urine 0-3 per hpf (0-3); Squamous Epithelial Cell,Urine Many per lpf (None-Few); WBC,Urine 50-100 per hpf (0-3)
[2019-06-19 09:17] LABS: Hyaline Casts,Urine None Seen per lpf (None-Few)
[2019-06-19] MEDS ORDERED: Naloxone 0.4 MG/ML INJ IVP PRN (10:52)
[2019-06-19] MEDS ORDERED: methylPREDNISolone 125 MG/2 ML VIAL IVP SCH (10:58)
[2019-06-19] MEDS ORDERED: Ipratropium/Albuterol Neb 3 ML IH PRN (10:58)
[2019-06-19] MEDS ORDERED: Insulin DETEMIR 100 UNIT/ML X5UNITS SQ ONE (11:20)
[2019-06-19] MEDS: Insulin LISPRO 300 UNITS/3 ML VIAL SQ SCH ×3 (12:04→20:50)
[2019-06-19] MEDS ORDERED: *HR* Dextrose 50 % in Water (Syg) 50 ML SYRINGE IVP PRN (12:52)
[2019-06-19] MEDS ORDERED: D5% in Water 1,000 ML IVC PRN (12:52)
[2019-06-19] MEDS ORDERED: Dextrose Gel 15 GM/37.5 ML TUBE PO PRN ×2 (12:52)
[2019-06-19] MEDS: Budesonide/Formoterol 160/4.5 1 PUFF INH IH SCH ×2 (13:37→21:20)
[2019-06-19] MEDS: Ipratropium/Albuterol Neb 3 ML IH SCH ×3 (13:37→21:19)
[2019-06-19] MEDS: *HR* Heparin 5,000 UNIT/ML VIAL SQ SCH ×2 (16:29→20:49)
[2019-06-19] MEDS: MethylPREDNISolone 40 MG/ML VIAL IVP SCH ×2 (16:56→23:43)
[2019-06-19] MEDS: Pregabalin 50 MG CAPSULE PO SCH (20:49)
[2019-06-20] MEDS: Ipratropium/Albuterol Neb 3 ML IH SCH ×4 (03:56→22:21)
[2019-06-20] MEDS ORDERED: Acetaminophen 325 MG TABLET PO ONE (06:04)
[2019-06-20] MEDS: *HR* Heparin 5,000 UNIT/ML VIAL SQ SCH ×3 (06:14→23:46)
[2019-06-20] MEDS: Pregabalin 50 MG CAPSULE PO SCH ×2 (08:12→23:46)
[2019-06-20] MEDS: cefTRIAXone 1,000 MG in 0.9 % Sodium Chloride Mini Bag 100 ML IVPB SCH (08:12)
[2019-06-20] MEDS: Azithromycin 250 MG TABLET PO SCH (08:12)
[2019-06-20] MEDS: MethylPREDNISolone 40 MG/ML VIAL IVP SCH (08:12)
[2019-06-20] MEDS: Insulin LISPRO 300 UNITS/3 ML VIAL SQ SCH ×4 (08:27→23:47)
[2019-06-20] MEDS ORDERED: cefTRIAXone 1,000 MG in Water for inj. (sterile) 10 ML IVP SCH (09:00)
[2019-06-20] MEDS ORDERED: Azithromycin 500 MG in 0.9 % Sodium Chloride 250 ML IVPB SCH (09:00)
[2019-06-20] MEDS: Budesonide/Formoterol 160/4.5 1 PUFF INH IH SCH ×2 (10:28→22:21)
[2019-06-20] MEDS: predniSONE 20 MG TABLET PO SCH (15:54)
[2019-06-21] MEDS: Ipratropium/Albuterol Neb 3 ML IH SCH ×2 (03:44→09:50)
[2019-06-21 04:41] LABS: Hematocrit 34.5 % (35.3-44.9); Hemoglobin 11.1 g/dL (11.5-15.4); Mean Corpuscular HGB Conc 32.2 g/dL (31.6-35.5); Mean Corpuscular Hemoglobin 26.5 pg (28.0-33.3); Mean Corpuscular Volume 82.3 fL (83.0-100.0); Mean Platelet Volume 9.4 fL (9.4-12.4); Platelet Count 312 K/mcL (140-400); Red Blood Count 4.19 M/mcL (3.82-4.97); Red Cell Distribution Width 16.8 % (11.5-14.5)
[2019-06-21 04:42] LABS: White Blood Count 21.3 K/mcL (4.3-11.1)
[2019-06-21 05:02] LABS: BUN/Creatinine Ratio 25 (6-26); Blood Urea Nitrogen 22 mg/dL (8-23); Calcium 8.5 mg/dL (8.6-10.3); Carbon Dioxide 28 mEq/L (23-29); Chloride 102 mEq/L (98-107); Glucose 202 mg/dL (70-105); Magnesium 2.2 mg/dL (1.6-2.6); Osmolality,Calculated 299 (280-300); Potassium 3.7 mEq/L (3.5-5.1); Sodium 140 mEq/L (136-145); eGFR For African Americans > 60 (> 60); eGFR For Non-African Americans > 60 (> 60)
[2019-06-21] MEDS: *HR* Heparin 5,000 UNIT/ML VIAL SQ SCH (05:58)
[2019-06-21 07:48] VITALS: BP 153/73
[2019-06-21] MEDS: Insulin LISPRO 300 UNITS/3 ML VIAL SQ SCH (08:01)
[2019-06-21] MEDS: Pregabalin 50 MG CAPSULE PO SCH (08:01)
[2019-06-21] MEDS: Azithromycin 250 MG TABLET PO SCH (08:01)
[2019-06-21] MEDS: predniSONE 20 MG TABLET PO SCH (08:01)
[2019-06-21] MEDS: cefTRIAXone 1,000 MG in 0.9 % Sodium Chloride Mini Bag 100 ML IVPB SCH (08:02)
[2019-06-21] MEDS ORDERED: tiZANidine 4 MG TABLET PO PRN (08:06)
[2019-06-21] MEDS: Budesonide/Formoterol 160/4.5 1 PUFF INH IH SCH (09:50)
== END 2019-06-21 12:15 | disposition home or self-care (01) | DRG 871 ==
LOC: SUATTDRO → 2ANU 07:32 → EMEROOARM 07:32 → SUATTDRO 12:46 → 2ANU 13:15
PROVIDERS: ADMIT Internal Medicine; ATTEND Internal Medicine